=== PATIENT | female | born 1990 | race Two or more races ===

== ENCOUNTER 2023-07-08 12:56 | Outpatient (REF) | payer MEDICAID, SELFPAY ==
[2023-07-08 16:14] LABS: MANUAL DIFF FLAG NO
[2023-07-08 16:20] LABS: Basophils Absolute Auto 0.1 X10*3/uL (0.0-0.2); Eosinophils Absolute Auto 0.4 X10*3/uL (0.0-0.4); Eosinophils Percent Auto 4.9 % (0-4); Hematocrit 42.6 % (37.0-47.0); Hemoglobin 13.6 g/dl (12.0-16.0); Imm Gran Abs Auto 0.03 X10*3/uL (0.00-0.03); Imm Gran Pct Auto 0.4 % (0.0-0.4); Lymphocytes Absolute Auto 1.6 X10*3/uL (1.2-4.9); Lymphocytes Percent Auto 19.2 % (20-40); Mean Corpuscular HGB Conc 31.9 g/dl (31.0-35.0); Mean Corpuscular Hemoglobin 26.4 pg (27.0-33.0); Mean Corpuscular Volume 82.6 fL (80.0-98.0); Mean Platelet Volume 12.1 fL (9.4-12.3); Monocytes Absolute Auto 0.5 X10*3/uL (0.1-1.2); Monocytes Percent Auto 6.2 % (2-11); Neutrophils Absolute Auto 5.7 x10*3/uL (2.0-8.3); Neutrophils Percent Auto 68.3 % (45-73); Platelet Count 331 X10*3/uL (160-400); Red Blood Count 5.16 X10*6/uL (4.20-5.50); Red Cell Distribution Width 14.2 % (11.0-16.0); White Blood Count 8.4 X10*3/uL (4.8-10.8)
[2023-07-08 16:31] LABS: Estimated Average Glucose 108 mg/dL; Hemoglobin A1c % 5.4 % (<6.0)
[2023-07-08 16:37] LABS: Alanine Aminotransferase 24 U/L (0-31); Albumin Level 4.2 g/dL (3.5-5.0); Alkaline Phosphatase 77 U/L (39-117); Anion Gap 11 (12-20); Aspartate Amino Transferase 23 U/L (5-31); Bilirubin Direct 0.2 mg/dL (0.0-0.5); Bilirubin Total 0.3 mg/dL (0.0-1.0); Blood Urea Nitrogen 10 mg/dL (9-16); Calcium 9.9 mg/dL (8.4-10.2); Carbon Dioxide 28 mmol/L (22-29); Chloride 105 mmol/L (96-108); Cholesterol 181 mg/dL (<200); Estimated Glomerular Filt Rate > 60; Glucose Random 90 mg/dL (60-115); HDL Cholesterol 68 mg/dL (>40); LDL Cholesterol Calculated 94 mg/dL (<100); Potassium 4.3 mmol/L (3.3-5.1); Sodium 140 mmol/L (135-145); Total Protein 7.8 g/dL (6.5-8.0); Triglycerides 99 mg/dL (<150)
[2023-07-08 16:58] LABS: Free T4 (Free Thyroxine) 0.96 ng/dL (0.71-1.85); Thyroid Stimulating Hormone 1.06 uIU/mL (0.32-4.0); Vitamin D 25-OH Total 26.7 ng/mL (>30)
[2023-07-09 04:32] LABS: CT PCR NOT DETECTED (Not Detect.); NG PCR NOT DETECTED (Not Detect.)
[2023-07-09 08:52] LABS: HBS Num1 522.02 mIU/mL (0-7.99); HBsAGNum1 0.41 S/CO (0.00-0.99); HIV AB/AG Nonreactive (Nonreactive); HIV Num 1 0.06 S/CO (0.00-0.99); Hepatitis B Surface Antigen Negative (Negative); ~HepC Num1 0.07 S/CO (0.00-0.79); ~Hepatitis B Surface Antibody REACTIVE (Nonreactive); ~Hepatitis C Antibody Nonreactive (Nonreactive)
[2023-07-10 08:04] LABS: Syphilis Screen Nonreactive (Nonreactive)
== END 2023-07-08 12:57 | disposition home or self-care (01) ==
LOC: HO.HHCL 12:56
PROVIDERS: Visit Provider Family Medicine
DX: J45.20 Mild intermittent asthma, uncomplicated (principal); E55.9 Vitamin D deficiency, unspecified; L50.9 Urticaria, unspecified
CPT/HCPCS: 0353U; 80048; 80061; 80076; 82306; 83036; 84439; 84443; 85025; 86706; 86780; 86803; 87340; 87389

== ENCOUNTER 2023-07-10 11:55 | Outpatient (REF) | payer MEDICAID, SELFPAY ==
--- NOTE | ~2023-07-10 | XR_ITS ---
EXAMINATION: XR KNEE, BILATERAL CLINICAL INFORMATION: Pain COMPARISON: 07/01/2019 TECHNIQUE: Lateral, and axial and 2 AP views of the left knee. Lateral and 2 AP views of the right knee. FINDINGS: Left knee: Mild medial and lateral joint space narrowing with small medial marginal osteophytes. Joint effusion present. Right knee: Joint effusion. Small medial and lateral marginal osteophytes. Mild medial and lateral joint space narrowing. XR/XR knee RT 3V IMPRESSION: Mild degenerative changes in the bilateral knees. Bilateral joint effusions.
--- NOTE | ~2023-07-10 | XR_ITS ---
EXAMINATION: XR KNEE, BILATERAL CLINICAL INFORMATION: Pain COMPARISON: 07/01/2019 TECHNIQUE: Lateral, and axial and 2 AP views of the left knee. Lateral and 2 AP views of the right knee. FINDINGS: Left knee: Mild medial and lateral joint space narrowing with small medial marginal osteophytes. Joint effusion present. Right knee: Joint effusion. Small medial and lateral marginal osteophytes. Mild medial and lateral joint space narrowing. XR/XR knee LT 3V IMPRESSION: Mild degenerative changes in the bilateral knees. Bilateral joint effusions.
== END 2023-07-10 11:56 | disposition home or self-care (01) ==
LOC: HO.HHCX 11:55
PROVIDERS: Visit Provider Family Medicine
DX: M25.561 Pain in right knee (principal); M25.562 Pain in left knee; G89.29 Other chronic pain
CPT/HCPCS: 73562

== ENCOUNTER 2023-07-15 13:29 | Outpatient (REF) | payer MEDICAID, SELFPAY ==
--- NOTE | ~2023-07-15 | CT_ITS ---
EXAMINATION: CT SCAN OF THE TEMPORAL BONES CLINICAL INFORMATION: Right-sided tinnitus COMPARISON: None. TECHNIQUE: Multidetector helical imaging was performed in the axial plane with generation of oblique axial and coronal reformatted projections. This CT examination was performed using dose optimization techniques as appropriate, variously including the following: *Automated exposure control *Adjustment of mA and/or kV according to patient size (this includes techniques or standardized protocols for targeted exams where dose is matched to indication/reason for exam; i.e. extremities or head) *Use of iterative reconstruction technique DLP: 202 mGy-cm. FINDINGS: -- Left Temporal Bone -- The periauricular soft tissues are unremarkable. The external auditory canal is clear. The tympanic membrane is intact without thickening. The scutum is normal. The middle ear cleft is clear. There is resorptive change/fibrous replacement of the distal lenticular process at the incudostapedial joint, otherwise normal appearance of the ossicles. The round and oval windows are normal. There is normal mineralization of the otic capsule. The tegmen tympani and tegmen mastoideum are intact. The mastoid air cells are clear. The cochlea, vestibule, and semicircular canals are normal. The vestibular aqueduct is normal.Small superiorly projecting IAC exostosis off the roof of the porus acusticus. The bony internal auditory canal is otherwise normal. The facial nerve course is normal. -- Right Temporal Bone -- The periauricular soft tissues are unremarkable. The external auditory canal is clear. The tympanic membrane is intact without thickening. The scutum is normal. The middle ear cleft is clear. The ossicles are normal without erosive change. The round and oval windows are normal. There is normal mineralization of the otic capsule. The tegmen tympani and tegmen mastoideum are intact. The mastoid air cells are clear. The cochlea, vestibule, and semicircular canals are normal. The vestibular aqueduct is normal. Small superiorly projecting IAC exostosis off the roof of the porus acusticus. The bony internal auditory canal is otherwise normal. The facial nerve course is normal. -- Other Findings -- There is asymmetric thinning/dehiscence of the right sigmoid plate in contiguity with several right-sided mastoid air cells as seen on image 98, series 4, which may be seen in the setting of ipsilateral pulsatile tinnitus. The bilateral carotid canals are normal. Mild scattered paranasal sinus mucosal disease, including dependent debris/retention cysts in the bilateral sphenoid sinuses. Asymmetric subchondral cystic/erosive changes of the right mandibular condyle head which is asymmetrically small compared to the contralateral left side with chronic osseous remodeling. The orbits are unremarkable. The visualized intracranial structures are normal. CT/CT internal auditory canals BI IMPRESSION: 1. Asymmetric thinning/dehiscence of the right sigmoid plate in contiguity with several right-sided mastoid air cells which may be accounting for reported history of right-sided pulsatile tinnitus. 2. Resorptive change/fibrous replacement of the distal lenticular process at the incudostapedial joint, which can be correlated clinically for history of left-sided conductive hearing loss. 3. Small superiorly projecting IAC exostoses. 4. Subchondral cystic/erosive change of the right mandibular condyle head which is asymmetrically small compared to the contralateral left side with chronic osseous remodeling can be correlated clinically for signs of unilateral bruxism. Asymmetry would be atypical for underlying systemic/inflammatory arthropathy.
== END 2023-07-15 13:30 | disposition home or self-care (01) ==
LOC: HO.CT 13:29
PROVIDERS: PCP Family Medicine; Visit Provider Family Medicine
DX: H93.11 Tinnitus, right ear (principal)
CPT/HCPCS: 70480

== ENCOUNTER 2023-07-22 10:21 | Outpatient (AMB) | payer MEDICAID, SELFPAY ==
--- NOTE | 2023-07-22 10:25 | MHC.OFFVIS ---
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 Patient reports ongoing pain for many years with no previous treatment. She states that both of her knees are equal to pain. Pain is worse when using the stairs. She denies any locking or giving way. She does report an intermittent ?crunchy sensation?. She has taken Tylenol which gives her mild relief. Allergies cefotetan [CEFOTETAN] Allergy (Intermediate, Verified 07/22/23 10:29) HIVES AND FACIAL SWELLING Medication List - Last Reconciled 07/22/23 by Greg Turcios MD acetaminophen ER 650 mg PO Q8H PRN albuterol sulfate 90 mcg/actuation (Ventolin HFA) 2 puffs inhalation Q4-6H PRN baclofen 10 mg PO TID PRN diclofenac sodium 1% 2 grams topical DAILY PRN ibuprofen 800 mg PO TID PRN meloxicam 15 mg PO DAILY PRN norethindrone (contraceptive) (Incassia) 0.35 mg PO DAILY PFSH Social History (Updated 07/22/23 @ 10:31 by Razia Longoria) Alcohol intake: never Patient Tobacco Use Status: Never used Tobacco Current occupational status: employed 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 Physical Exam Vital Signs: BMI result Body Mass Index 54.9 Const Other: Well-nourished well-developed very friendly female awake alert and oriented x3 in no acute distress Extrem Other: Bilateral lower extremity examination shows good capillary refill, no skin lesions noted, normal sensation light touch Bilateral knee examination shows minimal effusions, minimal crepitus with range of motion, no tenderness along her medial or lateral joint lines, negative Lázaro's test, no instability Results Reviewed Results Reviewed: X-rays of the patient's bilateral knee show mild diffuse joint space narrowing, no acute bony abnormalities Assessment & Plan Assessment & Plan (1) Left knee pain: Code(s): M25.562 - Pain in left knee Plan: Ms. Espinoza presents with bilateral knee pains most likely due to early degenerative joint disease. I had a lengthy discussion with the patient regarding the treatment options. We will hold off on an injection at this time. I did give the patient a prescription for meloxicam which she will take as needed. Activity modifications were discussed at length with the patient. She will follow up on an as-needed basis should her symptoms not plateau at an unacceptable level over the next few months. Feel free to call me at any time should questions regarding her orthopedic management arise. Thank you very much for asking me to see this very friendly patient. I spent 22 minutes in reviewing the patient's records and imaging studies, seeing the patient and documenting in the medical record. (2) Right knee pain: Code(s): M25.561 - Pain in right knee Medications: New meloxicam 15 mg PO DAILY PRN 30 tabs 2RF pain Coding Level of Care Code New Pt Level 2 (41177) Diagnoses Left knee pain M25.562 Right knee pain M25.561
[2023-07-22 10:31] VITALS: BMI 54.9
== END 2023-07-22 10:45 | disposition home or self-care (01) ==
PROVIDERS: PCP Family Medicine; Visit Provider Orthopaedic Surgery
DX: M25.562 Pain in left knee (principal); M25.561 Pain in right knee
CPT/HCPCS: 99202

== ENCOUNTER → 2023-07-22 10:21 | Outpatient (BNVA) | payer MEDICAID, SELFPAY | PROVIDERS: PCP Family Medicine; Visit Provider Orthopaedic Surgery | DX: G89.29 Other chronic pain (principal); M25.562 Pain in left knee; M25.561 Pain in right knee | CPT/HCPCS: 99202 ==

== ENCOUNTER 2023-10-05 17:33 | Outpatient (REF) | payer MEDICAID, SELFPAY | END 2023-10-05 17:34 | disposition home or self-care (01) | LOC: HO.HHCLNP 17:33 | PROVIDERS: Visit Provider Emergency Medicine | DX: R39.9 Unspecified symptoms and signs involving the genitourinary system (principal); R00.2 Palpitations | CPT/HCPCS: 87086; 87088; 87186 ==

== ENCOUNTER 2023-10-07 11:17 | Outpatient (REF) | payer MEDICAID, SELFPAY ==
[2023-10-07 13:14] LABS: MANUAL DIFF FLAG NO
[2023-10-07 13:32] LABS: Basophils Absolute Auto 0.1 X10*3/uL (0.0-0.2); Basophils Percent Auto 0.7 % (0-2); Eosinophils Absolute Auto 0.2 X10*3/uL (0.0-0.4); Eosinophils Percent Auto 2.1 % (0-4); Hematocrit 41.8 % (37.0-47.0); Hemoglobin 13.5 g/dl (12.0-16.0); Imm Gran Abs Auto 0.04 X10*3/uL (0.00-0.03); Imm Gran Pct Auto 0.5 % (0.0-0.4); Lymphocytes Absolute Auto 1.7 X10*3/uL (1.2-4.9); Lymphocytes Percent Auto 20.9 % (20-40); Mean Corpuscular HGB Conc 32.3 g/dl (31.0-35.0); Mean Corpuscular Hemoglobin 26.8 pg (27.0-33.0); Mean Corpuscular Volume 83.1 fL (80.0-98.0); Mean Platelet Volume 11.7 fL (9.4-12.3); Monocytes Absolute Auto 0.5 X10*3/uL (0.1-1.2); Monocytes Percent Auto 6.5 % (2-11); Neutrophils Absolute Auto 5.6 x10*3/uL (2.0-8.3); Neutrophils Percent Auto 69.3 % (45-73); Platelet Count 318 X10*3/uL (160-400); Red Blood Count 5.03 X10*6/uL (4.20-5.50); Red Cell Distribution Width 14.3 % (11.0-16.0)
[2023-10-07 13:39] LABS: Estimated Average Glucose 111 mg/dL; Hemoglobin A1c % 5.5 % (<6.0)
[2023-10-07 14:07] LABS: Free T4 (Free Thyroxine) 0.97 ng/dL (0.71-1.85); Thyroid Stimulating Hormone 1.14 uIU/mL (0.32-4.0)
== END 2023-10-07 11:18 | disposition home or self-care (01) ==
LOC: HO.HHCL 11:17
PROVIDERS: Visit Provider Family Medicine
DX: R00.2 Palpitations (principal)
CPT/HCPCS: 36415; 83036; 84439; 84443; 85025

== ENCOUNTER → 2023-10-30 12:26 | Outpatient (REF) | payer MEDICAID, SELFPAY ==
--- NOTE | 2023-10-30 12:32 | CA_ITS ---
Transthoracic Echocardiogram Patient (Last, First, Middle): Rosendo Espinoza, Gender: Female Date of : 1990 Age: 32 Procedure Date: 10/30/2023 Procedure Type: Transthoracic Echocardiogram Location: OP Height: 162.56 cm Weight: 145.15 kg BSA: 2.39 m2 Heart Rate: 54 bpm BP: 110 / 65 mmHg Room Worker: JORDEN Segal MD: Rhiannon De Los Santos DO Coin Machine Servicer Repairer: Ross Rios MD Symptoms: R00.2 PALPITATIONS Study Quality: Fair ECG Rhythm: Bradycardia Conclusions: - Essentially normal study Findings Left Ventricle Normal left ventricular size, thickness, and systolic function. The visually estimated ejection fraction is between 55-60%. Spectral Doppler is indicative of a normal filling pattern. Peak GLS is -17.9%, borderline normal. Right Ventricle Normal right ventricular cavity size and systolic function. Atria Both atria are normal in size. Interatrial shunt cannot be excluded. Aortic Valve The aortic valve structure and function is likely normal. There is no aortic valve stenosis. There is no aortic valve regurgitation. Mitral Valve Normal mitral valve structure and function. There is trace mitral valve regurgitation. There is no mitral valve stenosis. Pulmonic Valve The pulmonic valve is likely normal. Tricuspid Valve Normal tricuspid valve structure. There is trace tricuspid valve regurgitation. The right ventricular systolic pressure is normal. The right ventricular systolic pressure is 20 mmHg. Normal right atrial pressure. There is no evidence of pulmonary hypertension. Great Vessels All visible segments of the aorta are normal in size. The pulmonary artery was not well visualized. There is no dilatation of the ascending aorta measuring 3.40 cm. Venous The inferior vena cava is normal in size and collapses greater than 50% with inspiration. Pericardium/Pleural There is no evidence of pericardial effusion. Prior Study Comparison No prior study available for comparison. Measurements 2D Linear Measurements IVSd: 0.76 0.6-0.9/0.6-1.0 cm LVIDd: 5.38 3.9-5.3/4.2-5.9 cm LVIDd Index: 2.25 2.4-3.2/2.2-3.1 cm/m2 LVIDs: 3.50 2.0-3.6 cm LVPWd: 0.87 0.7-1.1 cm LA Diam: 3.80 2.7-3.8/3.0-4.0 cm LAIDs Index: 1.59 1.5-2.3 cm/m2 LV Mass: 196.91 67-162/88-224 g LV Mass Index: 82.39 43-95/49-115 g/m2 LVOT Diam: 2.10 3.0+(-)1.3 cm 2D Systolic Function EF 4C: 57.60 >55% EF 2C: 55.00 >55% EF BiP: 55.00 >55% Mitral Valve MV Pk E: 1.09 MV PK A: 0.67 MV Decel Time: 208.00 E/A: 1.60 E'Lateral: 10.70 E'Medial: 9.68 E/E' Med: 11.30 E/E' Lat: 10.20 PHT: 61.00 MVA PHT: 3.61 Decel [place]: 5.26 Aortic Valve AoV Pk Dalton: 1.65 AoV Mn Dalton: 1.16 AoV VTI: 0.37 AoV Pk Grad: 11.00 Aov Mn Grad: 6.00 ANU Cont.VTI: 2.75 LVOT LVOT Pk Dalton: 1.27 LVOT Mn Dalton: 0.92 LVOT VTI: 0.30 LVOT Pk Grad: 6.00 LVOT Mn Grad: 4.00 LVOT Diam: 2.10 LVOT Area: 3.46 Diastolic Function MV Pk E: 1.09 MV Pk A: 0.67 E/A: 1.60 E'Medial: 9.68 E/E' Med: 11.30 E' Laterial: 10.70 E/E' Lat: 10.20 Right Ventricle TAPSE (mm): 25.30 TVS' Dalton: 12.40 Tricuspid Valve TR Pk Dalton: 2.09 TR Pk Grad: 17.00 RA Press: 3.00 RVSP: 20.00 Great Vessels Aorta Sinus of Valsalva: 2.90 2.0-3.5 cm Ao Asc: 3.40 2.1-3.4 cm Pulmonary Valve PV Pk Dalton: 0.99 Peak PV Grad: 4.00 Updated in Other Vendor System with Status of Final Ross Rios MD electronically signed on 10/30/2023 3:59:57 PM with status of Final
--- NOTE | 2023-10-30 12:34 | HM_ITS ---
* Total monitoring time 2 days. * Underlying rhythm is sinus with an average rate of 79/Min. Range 46 to 148/Min. * Very rare supraventricular ectopy. * No significant pauses or AV blocks. * No patient markers or diary events. MTDD
== END ==
LOC: HO.CARD 12:26
PROVIDERS: PCP Family Medicine; Visit Provider Family Medicine
DX: R00.2 Palpitations (principal)
CPT/HCPCS: 93225; 93306; 93356

== ENCOUNTER → 2023-10-30 12:32 | Outpatient (BNV) | payer MEDICAID, SELFPAY | PROVIDERS: PCP Family Medicine; Visit Provider Internal Medicine Cardiovascular Disease | DX: I47.10 Supraventricular tachycardia, unspecified (principal) | CPT/HCPCS: 93227; 93306 ==

== ENCOUNTER 2023-11-25 18:35 | Outpatient (REF) | payer MEDICAID, SELFPAY | END 2023-11-25 18:36 | disposition home or self-care (01) | LOC: HO.HHCLNP 18:35 | PROVIDERS: Visit Provider Emergency Medicine | DX: R30.9 Painful micturition, unspecified (principal) | CPT/HCPCS: 87086; 87088; 87186 ==

== ENCOUNTER 2024-01-04 13:20 | Outpatient (AMB) | payer MEDICAID, SELFPAY ==
[2024-01-04 13:32] VITALS: BP 128/72; PULSE 83; BMI 55.6
--- NOTE | 2024-01-04 13:32 | MHC.OFFVIS ---
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 Intake Note: New patient c/o palpitations mostly after lunch last about 2 hour hr between 80-105 Unit Operator Required: No Allergies cefotetan [CEFOTETAN] Allergy (Intermediate, Verified 07/22/23 10:29) HIVES AND FACIAL SWELLING Medication List - Last Reconciled 01/04/24 by Ross Rios MD acetaminophen ER 650 mg PO Q8H PRN albuterol sulfate 90 mcg/actuation (Ventolin HFA) 2 puffs inhalation Q4-6H PRN baclofen 10 mg PO TID PRN diclofenac sodium 1% 2 grams topical DAILY PRN ibuprofen 800 mg PO TID PRN meloxicam 15 mg PO DAILY PRN norethindrone (contraceptive) (Incassia) 0.35 mg PO DAILY HPI HPI Comments History of Present Illness Details Thank you for referring Rosendo in cardiology consultation today for symptoms of palpitations. 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 Patient has been having symptoms of palpitation with the last many months, she is notice that the symptoms happen mostly after she has lunch. This does not matter as to what kind of lunch she has. She usually feels her heart rate going up to about 110 beats per minute, she would get some lightheadedness and not feeling well. She would then just wait it out and the symptoms would subside in his about hour or so. She has never had these symptoms at other times. She underwent echocardiogram and Holter monitor in October which were both within acceptable limits. She says she does not drink much water on a daily basis. She had a gastric sleeve surgery 7-8 years ago at [facility] and had lost lot of weight but has slowly started to gain it back. She is seen the bariatric surgery again have they recommended gastric bypass surgery but she says she is very busy in life with her job and 2 young kids. She has not been exercising much or paying attention to her lifestyle modification. She denies any worsening exertional chest pain or shortness of breath. No lightheadedness, syncope. 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 Review of Systems Const Denies chills, Denies daytime sleepiness, Denies fatigue, Denies fever(s), Denies frequent falls, Denies poor appetite, Denies snoring, Denies stops breathing during sleep, Denies weakness, Denies weight gain and Denies weight loss Eyes Denies loss of vision ENT Denies dizziness and Denies hearing loss Card Denies chest pain, Denies claudication, Denies leg edema, Denies lightheadedness, Denies palpitations, Denies dyspnea, Denies dyspnea on exertion and Denies orthopnea Resp Denies cough, Denies excessive phlegm production, Denies dyspnea, Denies dyspnea on exertion, Denies snoring and Denies wheezing GI Denies abdominal pain, Denies hematochezia, Denies change in bowel habits, Denies nausea and Denies vomiting Denies urinary frequency and Denies dysuria Musc Denies arthralgias, Denies muscle weakness, Denies numbness and Denies other (frequent falls) Skin/Breast Denies nail changes and Denies rash Neuro Denies Abnormal speech present, Denies dizziness, Denies frequent falls, Denies loss of vision, Denies memory loss, Denies numbness and Denies weakness Psych Denies depression and Denies memory loss Endo Denies fatigue and Denies palpitations Sagar/Lymph Reports easy bruising and Reports other (anemia) Aller/Immun Denies wheezing Physical Exam Vital Signs: Last Vital Signs Pulse 83 01/04/24 13:32 BP 128/72 01/04/24 13:32 BMI result Body Mass Index 55.6 Const General: cooperative, comfortable, no acute distress, alert and awake Nutritional Appearance: obese morbidly obese Orientation/consciousness: patient oriented x3 Limitations: no limitations HEENT Head: Yes normocephalic and Yes atraumatic Neck Neck: Yes trachea midline, Yes supple and Yes no JVD Resp Effort & Inspection: normal respiratory effort Auscultation: clear to auscultation bilaterally Cardio Jugular venous distension: no JVD Palpation: normal PMI Rate: regular rate Rhythm: regular rhythm Heart sounds: S1 normal heart sound present, S2 normal heart sound present, no click, no gallops, no murmurs and no rubs GI Auscultation: normal bowel sounds Skin General skin exam: no rashes or lesions noted Neuro General: patient oriented x3 and no focal motor deficits Speech: No Abnormal speech present Extrem General: Yes no clubbing, cyanosis or edema Office Procedures EKG Details: EKG shows normal sinus rhythm with normal EKG [id number], Complete Assessment & Plan Assessment & Plan (1) Palpitations: Code(s): R00.2 - Palpitations Plan: Patient's symptoms of palpitations mostly happening postprandially during lunchtime and not had other times. She has no associated episodes of syncope but does get lightheaded and does not feel well. This syndrome are suggestive of dysautonomia and findings similar to postural orthostatic tachycardia syndrome especially post lunch where the blood flow is diverted to the GI tract. Most likely related to poor oral intake of water overall. I would suggest her to undergo head-up tilt-table test to evaluate for dysautonomia. This will be scheduled in near future. Meanwhile I have advised her to increase her fluid intake to up to 2 L a day also liberalize her salt intake. Advised to monitor blood pressure during these episodes. Her echocardiogram and Holter monitor were benign. Likelihood of malignant arrhythmias is low and this was discussed with her. In the long run I have strongly encouraged to continue to participate in aggressive lifestyle modification with aggressive weight loss program and consider bariatric service consultation. Will follow up in the clinic in couple of months. Thank you for allowing me to partake in the care Coding Level of Care Code New Pt Level 3 (04675) Diagnoses Palpitations R00.2 CPT Codes EKG - CPT: 80335-[id number], Complete ([id number])
== END 2024-01-04 14:04 | disposition home or self-care (01) ==
PROVIDERS: PCP Family Medicine; Visit Provider Internal Medicine Cardiovascular Disease
DX: R00.2 Palpitations (principal)
CPT/HCPCS: 93010; 99213

== ENCOUNTER → 2024-01-04 13:20 | Outpatient (BNVA) | payer MEDICAID, SELFPAY | PROVIDERS: PCP Family Medicine; Visit Provider Internal Medicine Cardiovascular Disease | DX: R00.2 Palpitations (principal) | CPT/HCPCS: 93005; 99212 ==

== ENCOUNTER 2024-03-30 13:50 | Outpatient (AMB) | payer MEDICAID, SELFPAY ==
[2024-03-30 13:57] VITALS: BP 128/68; PULSE 78; BMI 55.6
--- NOTE | 2024-03-30 13:57 | MHC.OFFVIS ---
Vital Signs 03/30/24 13:57 Height 5 ft 4 in Weight 324 lb 1.272 oz BMI 55.6 BP 128/68 Blood Pressure Location Lt brachial Position Sitting Pulse 78 Pulse Source Pulse Oximeter Intake Visit Reasons: fu Allergies cefotetan [CEFOTETAN] Allergy (Intermediate, Verified 07/22/23 10:29) HIVES AND FACIAL SWELLING Medication List - Last Reconciled 03/30/24 by Lauryn Florian NP acetaminophen ER 650 mg PO Q8H PRN albuterol sulfate 90 mcg/actuation (Ventolin HFA) 2 puffs inhalation Q4-6H PRN baclofen 10 mg PO TID PRN diclofenac sodium 1% 2 grams topical DAILY PRN ibuprofen 800 mg PO TID PRN meloxicam 15 mg PO DAILY PRN HPI Comments Details: 33-year-old female presents today for a follow-up. She has been having palpitations after lunch. She reports her lunch is the biggest meal of the day. These palpitations have decreased since increasing her water intake. She has a medical history of asthma, arthritis, and gastric sleeve surgery, She was not able to get her tilt table done due to a weight limit at [facility]. 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 Review of Systems Const Denies weakness ENT Denies dizziness Card Denies chest pain, Denies chest pain with activity, Denies syncope, Denies rapid heart rate, Denies pedal edema, Denies edema, Denies leg edema, Denies lightheadedness, Denies palpitations, Denies dyspnea, Denies dyspnea on exertion and Denies orthopnea Resp Denies cough, Denies dyspnea and Denies dyspnea on exertion GI Denies hematochezia and Denies change in stool character Musc Denies abnormal gait, Denies muscle cramps, Denies muscle weakness, Denies numbness, Denies radiating pain into limb and Denies tingling Neuro Denies abnormal gait, Denies dizziness, Denies syncope, Denies numbness, Denies tingling and Denies weakness Endo Denies palpitations Physical Exam Vital Signs: Last Vital Signs Pulse 78 03/30/24 13:57 BP 128/68 03/30/24 13:57 BMI result Body Mass Index 55.6 Const General: healthy appearing and no acute distress Orientation/consciousness: patient oriented x3 HEENT Head: Yes normal to inspection Eyes General: appearance normal, both eyes and all related structures Neck Neck: Yes normal visual inspection Chest Chest palpation & inspection: normal inspection of the chest Resp Effort & Inspection: normal respiratory effort Auscultation: clear to auscultation bilaterally Cardio Jugular venous distension: no JVD Palpation: normal PMI Rate: regular rate Rhythm: regular rhythm Heart sounds: S1 normal heart sound present, S2 normal heart sound present, no click, no gallops, no murmurs and no rubs GI Inspection: Yes normal to inspection Palpation (GI): Soft to palpation Skin General skin exam: no rashes or lesions noted Neuro General: patient oriented x3 Extrem General: Yes normal to inspection Psych Appearance: grossly normal Assessment & Plan Assessment & Plan (1) Palpitations: Code(s): R00.2 - Palpitations Category: Medical Plan: Postprandial palpitations mostly after lunchtime. She states this is her biggest meal of the day. She has no associated episodes of syncope but does get lightheaded. Discussed how blood flow is diverted to the GI tract. She was not able to complete Tilt Table due to weight limits, will check with local hospitals to see if it can be done. Decreased symptoms with increasing her water intake. Advised to increase her fluid intake to up to 2 L a day and to liberalize her salt intake. Advised to monitor blood pressure and heart rate during these episodes. Log them along side with her symptoms and what she was doing at that time. Her echocardiogram and Holter monitor were benign. She stated that when she had her first holter that is was on her days off. She feels these mostly when she is working. Will reorder 48 hour holter and she will schedule it when she is going to be at work. Continue with weight loss. Orders: Orders ECG holter monitor 48 hour Today R00.2 - Palpitations Coding Level of Care Code Est Pt Level 3 (53657) Diagnoses Palpitations R00.2
== END 2024-03-30 14:30 | disposition home or self-care (01) ==
PROVIDERS: PCP Family Medicine; Visit Provider Nurse Practitioner
DX: R00.2 Palpitations (principal)
CPT/HCPCS: 99213

== ENCOUNTER → 2024-03-30 13:50 | Outpatient (BNVA) | payer MEDICAID, SELFPAY | PROVIDERS: PCP Family Medicine; Visit Provider Nurse Practitioner | DX: R00.2 Palpitations (principal) | CPT/HCPCS: 99212 ==

== ENCOUNTER 2024-04-20 12:10 | Outpatient (REF) | payer MEDICAID, SELFPAY ==
[2024-04-20 13:25] LABS: Basophils Percent Auto 0.5 % (0-2); Eosinophils Absolute Auto 0.1 X10*3/uL (0.0-0.4); Eosinophils Percent Auto 1.5 % (0-4); Hematocrit 38.3 % (37.0-47.0); Hemoglobin 12.5 g/dl (12.0-16.0); Imm Gran Abs Auto 0.04 X10*3/uL (0.00-0.03); Imm Gran Pct Auto 0.5 % (0.0-0.4); Lymphocytes Absolute Auto 1.3 X10*3/uL (1.2-4.9); MANUAL DIFF FLAG NO; Mean Corpuscular HGB Conc 32.6 g/dl (31.0-35.0); Mean Corpuscular Hemoglobin 27.5 pg (27.0-33.0); Mean Corpuscular Volume 84.2 fL (80.0-98.0); Mean Platelet Volume 11.7 fL (9.4-12.3); Monocytes Absolute Auto 0.4 X10*3/uL (0.1-1.2); Monocytes Percent Auto 4.9 % (2-11); Neutrophils Absolute Auto 5.6 x10*3/uL (2.0-8.3); Neutrophils Percent Auto 75.6 % (45-73); Platelet Count 242 X10*3/uL (160-400); Red Blood Count 4.55 X10*6/uL (4.20-5.50); Red Cell Distribution Width 15.5 % (11.0-16.0); White Blood Count 7.4 X10*3/uL (4.8-10.8)
[2024-04-20 13:52] LABS: Estimated Average Glucose 105 mg/dL; Hemoglobin A1c % 5.3 % (<6.0)
[2024-04-20 13:57] LABS: Alanine Aminotransferase 24 U/L (0-31); Alkaline Phosphatase 67 U/L (39-117); Anion Gap 10 (12-20); Aspartate Amino Transferase 18 U/L (5-31); Beta-Hydroxybutyrate 0.15 mmol/L (0.02-0.27); Bilirubin Direct 0.1 mg/dL (0.0-0.5); Bilirubin Total 0.4 mg/dL (0.0-1.0); Blood Urea Nitrogen 9 mg/dL (9-16); Calcium 9.7 mg/dL (8.4-10.2); Carbon Dioxide 26 mmol/L (22-29); Chloride 104 mmol/L (96-108); Cholesterol 179 mg/dL (<200); Estimated Glomerular Filt Rate > 60; Glucose Random 90 mg/dL (60-115); HDL Cholesterol 88 mg/dL (>40); LDL Cholesterol Calculated 78 mg/dL (<100); Sodium 136 mmol/L (135-145); Total Protein 7.4 g/dL (6.5-8.0); Triglycerides 69 mg/dL (<150)
[2024-04-20 14:04] LABS: HBc Num1 0.13 S/CO (0.00-0.79); HBsAGNum1 0.25 S/CO (0.00-0.99); HIV AB/AG Nonreactive (Nonreactive); HIV Num 1 0.05 S/CO (0.00-0.99); Hepatitis B Core Antibody Nonreactive (Nonreactive); Hepatitis B Surface Antigen Negative (Negative); ~Hepatitis B Surface Antibody REACTIVE (Nonreactive)
[2024-04-20 14:05] LABS: Hepatitis A Antibody IgG Nonreactive (Nonreactive); Hepatitis A Antibody IgM 0.12 Index (0-0.79); ~Hepatitis A Antibody IgG 0.57 S/CO (0.00-0.99); ~Hepatitis A Antibody IgM Nonreactive (Nonreactive)
[2024-04-20 14:13] LABS: Free T4 (Free Thyroxine) 0.92 ng/dL (0.71-1.85); Thyroid Stimulating Hormone 1.07 uIU/mL (0.32-4.0); Vitamin D 25-OH Total 19.7 ng/mL (>30)
[2024-04-20 14:42] LABS: HCG Quantitative 22111 mIU/mL; Insulin 9 uU/mL (2-29)
[2024-04-20 15:51] LABS: CT PCR NOT DETECTED (Not Detect.); NG PCR NOT DETECTED (Not Detect.)
[2024-04-21 09:04] LABS: C Peptide 1.91 ng/mL (0.80-3.85)
[2024-04-22 08:44] LABS: RPR Rapid Plasma Reagin NON-REACTIVE (NON-REACTIVE)
[2024-04-22 16:04] LABS: HCV RNA PCR Qn <1.18 NOT DETECTED Log IU/mL (NOT DETECTED); HCV RNA PCR Qn <15 NOT DETECTED IU/mL (NOT DETECTED)
== END 2024-04-20 12:11 | disposition home or self-care (01) ==
LOC: HO.HHCL 12:10
PROVIDERS: Visit Provider Family Medicine
DX: Z00.00 Encounter for general adult medical examination without abnormal findings (principal); J45.20 Mild intermittent asthma, uncomplicated; R00.2 Palpitations; N92.6 Irregular menstruation, unspecified; E16.2 Hypoglycemia, unspecified
CPT/HCPCS: 80048; 80061; 80076; 82010; 82306; 83036; 83525; 84439; 84443; 84681; 84702; 85025; 86592; 86704; 86706; 86708; 86709; 87340; 87389; 87491; 87522; 87591

== ENCOUNTER → 2024-05-02 07:00 | Outpatient (REF) | payer MEDICAID, SELFPAY ==
--- NOTE | 2024-05-02 07:02 | HM_ITS ---
* Total monitoring time 2 days. * Underlying rhythm is sinus with an average rate of 82/Min. * Very rare ventricular ectopy. * No significant pauses or high-grade AV blocks. * No patient markers or diary events. MTDD
== END ==
LOC: HO.CARD 07:00
PROVIDERS: PCP Family Medicine; Visit Provider Nurse Practitioner
DX: R00.2 Palpitations (principal)
CPT/HCPCS: 93225

== ENCOUNTER → 2024-05-02 07:02 | Outpatient (BNV) | payer MEDICAID, SELFPAY | PROVIDERS: PCP Family Medicine; Visit Provider Internal Medicine | DX: I49.3 Ventricular premature depolarization (principal) | CPT/HCPCS: 93227 ==

== ENCOUNTER 2025-01-20 12:03 | Outpatient (REF) | payer MEDICAID, SELFPAY ==
--- NOTE | ~2025-01-20 | XR_ITS ---
EXAMINATION: XR FOOT 3 OR MORE VIEWS RIGHT HISTORY: PAIN COMPARISON: There are no prior studies available for comparison. FINDINGS: Three views of the right foot are submitted. Osseous mineralization is normal. There is no fracture or dislocation. The joint spaces are preserved. There is a small plantar calcaneal spur. The soft tissues are unremarkable. XR/XR foot RT min 3V IMPRESSION: Small plantar calcaneal spur. Otherwise unremarkable examination of the right foot. Electronically signed by: Osmany Tuttle MD 01/20/2025 01:38 PM EDT
[2025-01-20 13:26] LABS: MANUAL DIFF FLAG NO
[2025-01-20 13:35] LABS: Basophils Absolute Auto 0.1 X10*3/uL (0.0-0.2); Basophils Percent Auto 0.8 % (0-2); Eosinophils Absolute Auto 0.3 X10*3/uL (0.0-0.4); Eosinophils Percent Auto 3.6 % (0-4); Hematocrit 38.9 % (37.0-47.0); Hemoglobin 12.1 g/dl (12.0-16.0); Imm Gran Abs Auto 0.06 X10*3/uL (0.00-0.03); Imm Gran Pct Auto 0.7 % (0.0-0.4); Lymphocytes Absolute Auto 1.6 X10*3/uL (1.2-4.9); Lymphocytes Percent Auto 18.4 % (20-40); Mean Corpuscular HGB Conc 31.1 g/dl (31.0-35.0); Mean Corpuscular Hemoglobin 25.7 pg (27.0-33.0); Mean Corpuscular Volume 82.6 fL (80.0-98.0); Mean Platelet Volume 11.7 fL (9.4-12.3); Monocytes Absolute Auto 0.5 X10*3/uL (0.1-1.2); Monocytes Percent Auto 5.3 % (2-11); Neutrophils Absolute Auto 6.1 x10*3/uL (2.0-8.3); Neutrophils Percent Auto 71.2 % (45-73); Platelet Count 328 X10*3/uL (160-400); Red Blood Count 4.71 X10*6/uL (4.20-5.50); Red Cell Distribution Width 15.5 % (11.0-16.0); White Blood Count 8.5 X10*3/uL (4.8-10.8)
--- OUTSIDE RECORDS SUMMARY | 2025-01-20 14:05 | XMS_ITS | Clinical Summary ---
Author Organization [employer] Address [address] [facility] [address] [place] [address] Care Team Providers Care Soaker Meat Name Role Phone Rhiannon De Los Santos DO Primary Care Provider Allergies Active Allergy Reactions Criticality Noted Date Comments Cefuroxime 01/20/2025 Other Reaction(s): facial, lip, and throat swelling Cephalosporins Angioedema 03/28/2015 Medications Diclofenac Sodium 1 % gel APPLY 2 G TOPICALLY IF NEEDED IN THE MORNING, AT NOON, IN THE EVENING, AND AT BEDTIME (PAIN). 100 g 2 3 Active meloxicam (Mobic) 15 MG tablet Take 15 mg by mouth if needed each day. 3 Active Blood Pressure kit 1 each 1 (one) time per week. 1 kit 3 Active multivitamin () 27-0.8 MG tablet Take 1 tablet by mouth Once per day. 90 tablet 3 4 04/13/20 25 Active triamcinolone (Kenalog) 0.1 % creamIndications :Eczema, unspecified type APPLY TO AFFECTED AREA TWICE A DAY 30 g 3 4 Active albuterol (Ventolin HFA) 108 (90 Base) MCG/ACT inhaler TAKE 2 PUFFS BY MOUTH EVERY 4 TO 6 HOURS NEEDED 18 g 1 4 Active Active Problems Problem Noted Date Diagnosed Date BMI 50.0-59.9, adult 07/08/2023 Chronic low back pain 09/28/2015 Mild intermittent asthma 09/28/2015 Urticaria 09/28/2015 Vitamin D deficiency 09/28/2015 Resolved Problems Problem Noted Date Diagnosed Date Resolved Date Elevated BP without diagnosis of hypertension 10/06/20 23 10/07/2023 Acute cystitis without hematuria 10/06/2023 10/07/2023 Heart palpitations 10/06/2023 3 Encounters Date Type Department Care Team Description 01/20/2025 10:30 AM EDT Office Visit [facility] [place] [address] Rhiannon De Los Santos DO Routine history and physical examination of adult (Primary Dx); Mild intermittent asthma without complication; Heart palpitations; Hypoglycemia; Pain of right heel; BMI 50.0-59.9, adult ([facility]) 01/20/2025 Travel 01/17/2025 Patient Outreach [facility] [place] [address] Rhiannon De Los Santos DO Care Coordination ([facility]/JANES Stout-Follow up call) 01/13/2025 Travel 01/12/2025 Patient Outreach [facility] [address] [address] Rhiannon De Los Santos DO Pre-visit Planning (SDOH screening completed on 12/04/2024) 01/10/2025 Telephone [facility] [place] [address] Rhiannon De Los Santos DO Care Management (C3CM follow up call) 01/06/2025 Telephone [facility] [place] [address] Rhiannon De Los Santos DO 01/03/2025 Patient Outreach [facility] [place] [address] Rhiannon De Los Santos DO Care Coordination ([facility]/JANES Stout-Follow up call) 12/30/2024 Population Health Risk Score [facility] Department [address] [place] [phone] Provider, Population Health Generic 12/23/2024 Telephone [facility] [place] [address] Rhiannon De Los Santos DO Care Management (C3 initial assessment/enrollme nt) 12/22/2024 Patient Outreach [address] [address] Rhiannon De Los Santos DO Care Coordination ([facility]/JANES Stout-[place] Appt Reminder) 12/16/2024 Patient Outreach [address] [address] Rhiannon De Los Santos DO Transition Of Care (Tcm) (HDF- Labor ) 12/14/2024 Patient Outreach [address] [address] Rhiannon De Los Santos DO Care Coordination ([facility]/JANES Stout- ADT outreach-Agrees to participate) 12/13/[address] [address] Rhiannon De Los Santos DO Care Management (C3 chart review) 12/06/[address] [address] Rhiannon De Los Santos DO Recall Appt. 12/06/2024 Travel 12/03/2024 Orders Only [address] [address] Provider, MD Joseph from Last 3 Months Immunizations Name Administration Dates Next Due DTaP 01/18/1996, 2,10/19/1991,07/19,01/17/1991 HPV, Quadrivalent 01/30/2009,09/08/2007,07/09/20 07 Hep B, Adolescent or Pediatric 12/29/1997,1995,01/31/1996 Hep B, adult 01/09/2021 Hib (HbO) 11/19/1993, 2,07/19/1991,01/17 IPV 01/18/1996, 2,07/19/1991,01/17 Influenza Whole 07/01/2019 Influenza injectable quadriv alent IIV4 with preservative 07/01/2019 Influenza injectable quadriv alent preservative free 08/28/2021,07/16/2020,09/04/2016,09/28 Influenza, IIV3, injectable 09/26/2010 MMR 05/19/1996,11/19/1993 Meningococcal MCV4P ACYW-135 07/09/2007 Pfizer Covid-19 Vaccine 12+ 08/21/2021 Pfizer Covid-19 Vaccine 12+ michelle-sucrose (Suarez Cap) 08/21/2021 Pneumococcal Polysaccharide PPSV23 03/24/2012 Tdap 09/16/2024,,01/30/2020,02/26,07/09/2007 Family History Medical History Relation Name Comments Diabetes Brother 1 Diabetes Brother 2 Diabetes Father Diabetes Mother Hyperlipidemia Mother Hypertension Mother Diabetes Mother's Brother Diabetes Mother's Sister Lung cancer Mother's Sister Relation Name Status Comments Brother 1 Brother 2 Alive Father Mother Mother's Brother Mother's Sister Social History Tobacco Use Types Packs/Day Years Used Date Smoking Tobacco: Never Passive Smoke Exposure: Never Smokeless Tobacco: Never Tobacco Cessation:Counseling Given: Not Answered Alcohol Use Standard Drinks/Week Comments Never 0 (1 standard drink = 0.6 oz pur e alcohol) Depression Answer Date Recorded Patient Health Questionnaire-9 Score 0 01/20/2025 Patient Health Questionnaire-9 Score 0 01/20/2025 Last PHQ-9: Questionnaire Data Not on file 0 01/20/2025 Housing Stability Answer Date Recorded What is your housing situation today? I have yong cordova 12/14/[address] you li ve. Do you have problems with any of the following? None of the above 12/14/2024 Food Insecurity Answer Date Recorded Within the past 12 months, y ou worried that your food would run out before you got money to buy more: Never True 12/14/2024 Within the past 12 months,th e food you bought just didn't last and you didn't have enough money to get more: Never True Transportation Answer Date Recorded In the past 12 months, has l ack of transportation kept you from medical appts, meetings, work or from getting things needed for daily living? No 12/14/2024 Utilities Answer Date Recorded In the past 12 months, has t he electric, gas, oil or water company threatened to shut off services in your home? No 12/14/2024 Depression Answer Date Recorded Patient Health Questionnaire-2 Score 0 01/20/2025 Internet Access Answer Date Recorded Internet Access Q1 Yes 12/14/2024 Internet Access Q2 Not on file 12/14/2024 Comments No Sex and Gender Information Value Date Recorded Sex Assigned at Female 08/18/2022 10:16 AM EDT Legal Sex Female 10:16 AM EDT Gender Identity Female 08/18/2022 10:16 AM EDT Sexual Orientation Straight 08/18/2022 10 :16 AM EDT Last Filed Vital Signs Vital Sign Reading Time Taken Comments Blood Pressure 139/80 01/20/2025 10:42 AM EDT Pulse 64 01/20/2025 10:42 AM EDT Temperature 36.1 ??C (96.9 ??F) 01/20/2025 10:42 AM E DT Respiratory Rate 19 01/20/2025 10:42 AM EDT Oxygen Saturation 99% 01/20/2025 10:42 AM EDT Inhaled Oxygen Concentration - - Weight 146 kg (322 lb) 01/20/2025 10:42 AM EDT Height 162.6 cm (5' 4 ) 01/20/2025 10:42 AM EDT Body Mass Index 55.27 01/20/2025 10:42 AM EDT Plan of Treatment Health Maintenance Due Date Last Done Comments Family Planning (PISQ) 2005 Pneumococcal Vaccine: Pediatrics (0 to 5 Years) and At-Risk Patients (6 to 49) Years) (2 of 2 - PCV) 03/24/2013 03/24/2012 COVID-19 Vaccine ( season) 2024 08/21/2021, 08/21/2021 Influenza Vaccine (#1) 2024 , 07/16/2020, 07/01/2019, Additional history exists SDOH Screening 12/14/2025 12/14/2024 Alcohol/Substance Use Screening 01/20/2026 01/20/2025 Depression Screening 01/20/2026 01/20/2025, 01/21/20 Tobacco Screening 01/20/2026 01/20/2025 Cervical Cancer Screening 11/12/2027 HPV/Cotest 11/12/2027 Pap Smear 11/12/2027 11/12/2022 Lipid Panel 04/20/2029 04/20/2024, 06/20, 12/27/2021, Additional history exists DTaP/Tdap/Td Vaccines (11 - Td or Tdap) 09/16/2034 09/16/2024, 08/21/2021, 01/30/2020, Additional history exists Zoster Vaccines (1 of 2) 2040 RSV Patients and Patients Aged 60 years or older (1 - 1-dose 75+ series) 2065 HIB Vaccines Completed 11/19/1993, 10/1991, 07/19/1991, Additional history exists IPV Vaccines Completed 01/18/1996, 10/1991, 07/19/1991, Additional history exists Meningococcal Vaccine Completed 07/09/2007 HPV Vaccines Completed 01/30/2009, 08/20, 07/09/2007 Hepatitis B Vaccines Completed 01/09/2021, 12/29/1997, 06/03/1996, Additional history exists Hepatitis C Screening Completed 07/08/2023 , 12/27/2021, 01/02/2021 HIV Screening Completed 04/20/2024, 06/20, 12/27/2021, Additional history exists Hepatitis A Vaccines Aged Out No long er eligible based on patient's age to complete this topic RSV under 20 months Aged Out No longe r eligible based on patient's age to complete this topic Rotavirus Vaccines Aged Out No longer eligible based on patient's age to complete this topic Procedures Procedure Name Priority Date/Time Associated Diagnosis Comments XR FOOT 3+ VIEWS RIGHT Routine 01/20/2025 12:41 PM EDT Pain of right heel CBC WITH AUTO DIFFERENTIAL Routine 01/20/2025 12:12 PM EDT Routine history and physical examination of adult Mild intermittent asthma without complication Heart palpitations Hypoglycemia Pain of right heel BMI 50.0-59.9, adult ([facility]) HIV 1/2 ANTIGEN/ANTIBODY, FOURTH GENERATION W/RFL Routine 04/20/2024 12:24 PM EDT Mild intermittent asthma without complication Heart palpitations Missed period Hypoglycemia Healthcare maintenance BMI 50.0-59.9, adult ([facility]) LIPID PANEL, STANDARD Routine 04/20/2024 12:24 PM EDT Mild intermittent asthma without complication Heart palpitations Missed period Hypoglycemia Healthcare maintenance BMI 50.0-59.9, adult (CMS/HCC) HEPATITIS C AB W/REFL TO HCV RNA, QN, PCR Routine 07/08/2023 1:05 PM EDT HM PAP/HPV Routine 11/12/2022 6:10 PM EST from Last 3 Months or Most Recently Relevant to Health Maintenance Results * XR Foot 3+ Views Right (01/20/2025 12:41 PM EDT) Anatomical Region Laterality Modality Lower Extremities, Foot Right Radiogra phic Imaging 01/20/2025 12:4 1 PM EDT Narrative 01/20/2025 1:41 PM EDT ? [facility] ?[address] ?[place] [address] ?XRay Report ? Signed ? Patient: Rosendo Dunaway ?MR#: [id number] ?? 83 ? : 1990 ?Acct:[id number] ? Age/Sex: 34 / F ?ADM Date: 01/20/25 ? Loc: HO.HHCL ? Attending Dr: Rhiannon De Los Santos DO ? Ordering Physician: Rhiannon De Los Santos DO ?? Date of Service: 01/20/25 ?? Procedure(s): XR foot RT min 3V ?? Accession Number(s): [id number] ? cc: Rhiannon De Los Santos DO ? EXAMINATION: ??XR FOOT 3 OR MORE VIEWS RIGHT ? HISTORY: PAIN ? COMPARISON: There are no prior studies available for comparison. ? FINDINGS: ? Three views of the right foot are submitted. ??Osseous mineralization is ?? normal. ??There is no fracture or dislocation. ??The joint spaces are ?? preserved. There is a small plantar calcaneal spur. ??The soft tissues ?? are unremarkable. ? XR/XR foot RT min 3V ?? IMPRESSION: ? Small plantar calcaneal spur. Otherwise unremarkable examination of the ?? right foot. ? Electronically signed by: ??Osmany Tuttle MD ??01/20/2025 01:38 PM EDT ?? RP ? Dictated By: ?Osmany Tuttle MD ? Signed By: ?<Electronically signed by Osmany Tuttle MD in OV> ?01/20/25 1338 ? DD/ 1241 ? TD/TT: 01/20/25 1300 ? Computer Technical Specialist: ? Procedure Note [place], Image - 01/20/[address] [address] XRay Report Signed Patient: Tanesha Dunaway#: [id number] 83 : 1990Acct:[id number] Age/Sex: 34 / FADM Date: 01/20/25 Loc: HO.CL Attending Dr: Rhiannon De Los Santos DO Ordering Physician: Rhiannon De Los Santos DO Date of Service: 01/20/25 Procedure(s): XR foot RT min 3V Accession Number(s): [id number] cc: Rhiannon De Los Santos DO EXAMINATION: XR FOOT 3 OR MORE VIEWS RIGHT HISTORY: PAIN COMPARISON: There are no prior studies available for comparison. FINDINGS: Three views of the right foot are submitted. Osseous mineralization is normal. There is no fracture or dislocation. The joint spaces are preserved. There is a small plantar calcaneal spur. The soft tissues are unremarkable. XR/XR foot RT min 3V IMPRESSION: Small plantar calcaneal spur. Otherwise unremarkable examination of the right foot. Electronically signed by: Osmany Tuttle MD 01/20/2025 01:38 PM EDT Dictated By: Osmany Tuttle MD Signed By: <Electronically signed by Osmany Tuttle MD in OV> 01/20/25 1338 DD/ 1241 TD/TT: 01/20/25 1300 Computer Technical Specialist: Rhiannon De Los Santos DO IMG XR PROCEDURES Final Resu lt * (ABNORMAL) CBC auto differential (01/20/2025 12:12 PM EDT) White Blood Count 8.5 4.8 - 10.8 X10*3/uL [facility] Red Blood Count 4.71 4.20 - 5.50 X10*6/uL [facility] Hemoglobin 12.1 12.0 - 16.0 g/dl [facility] Hematocrit 38.9 37.0 - 47.0 % [facility] Mean Corpuscular Volume 82.6 80.0 - 98.0 fL [facility] Mean Corpuscular Hemoglobin 25.7(L) 27.0 - 33.0 pg [facility] Mean Corpuscular HGB Conc 31.1 31.0 - 35.0 g/dl [facility] Red Cell Distribution Width 15.5 11.0 - 16.0 % [facility] Platelet Count 328 160 - 400 X10*3/uL [facility] Mean Platelet Volume 11.7 9.4 - 12.3 fL [facility] Neutrophils Percent Auto 71.2 45 - 73 % [facility] Imm Gran Pct Auto 0.7(H) 0.0 - 0.4 % [facility] Lymphocytes Percent Auto 18.4(L) 20 - 40 % [facility] Monocytes Percent Auto 5.3 2 - 11 % [facility] Eosinophils Percent Auto 3.6 0 - 4 % [facility] Basophils Percent Auto 0.8 0 - 2 % [facility] NRBC Pct Auto 0.0 0.0 - 0.2 /100WBC [facility] Neutrophils Absolute Auto 6.1 2.0 - 8.3 x10*3/uL [facility] Imm Gran Abs Auto 0.06(H) 0.00 - 0.03 X10*3/uL [facility] Lymphocytes Absolute Auto 1.6 1.2 - 4.9 X10*3/uL [facility] Monocytes Absolute Auto 0.5 0.1 - 1.2 X10*3/uL [facility] Eosinophils Absolute Auto 0.3 0.0 - 0.4 X10*3/uL [facility] Basophils Absolute Auto 0.1 0.0 - 0.2 X10*3/uL [facility] NRBC Abs Auto 0.000 0.0 - 0.012 X10*3/uL [facility] Blood Venous blood specimen / Unknown 01/20/2025 12:12 PM EDT 01/20/2025 1:21 PM EDT Rhiannon De Los Santos LAB BLOOD ORDERABLES Final R esult Performing Organization Address City/[facility]/ZIP Co de Phone Number [facility] [address] [place] [phone] * HIV-1/2 Antigen and Antibodies, Fourth Generation, with Reflexes (04/20/2024 12:24 PM EDT) HIV AB/AG Nonreactive Nonreactive [facility] Comment:HIV-1 p24 Ag and/or HIV-1/HIV-2 Ab not detected.A test result that is nonreactive does not exclude thepossibility of exposure to or infection with HIV-1 and/orHIV-2. Nonreactive results in this assay for individualswith prior exposure to HIV-1 and/or HIV-2 may be due toantigen and antibody levels that are below the limit ofdetection of this assay.The [employer] HIV Ag/Ab Combo assay result andsupplemental assay results should be interpreted inconjunction with the patient's clinical presentation,history and other laboratory results. If the results areinconsistent with clinical evidence, additional testing issuggested to confirm the result. Blood Venous blood specimen / Unknown 04/20/2024 12:24 PM EDT 04/20/2024 1:07 PM EDT Rhiannon De Los Santos DO LAB BLOOD ORDERABLES Final R esult Performing Organization Address [facility]/ZIP Co de Phone Number [facility] [address] [place] [phone] * Lipid Panel, Standard (04/20/2024 12:24 PM EDT) Triglycerides 69 <150 mg/dL [facility] Comment:Desirable Triglyceri de: less than 150 mg/dLBorderline High Triglyceride 150-199 mg/dLHigh Triglyceride: 200-499 mg/dLVery High Triglyceride: greater than or equal to 5OO mg/dL Cholesterol 179 <200 mg/dL [facility] Comment:Desirable Cholestero l: less than 200 mg/dLBorderline High Cholesterol: 200-239 mg/dLHigh Cholesterol: greater than 239 mg/dL LDL Cholesterol Calculated 78 <100 mg/dL [facility] Comment:Desirable LDL: less than 100 mg/dLNear Optimal/Above Optimal LDL: 110- 129 mg/dLBorderline High LDL: 130-159 mg/dLHigh LDL: 160-189 mg/dLVery High LDL: greater than or equal to 190 mg/dL HDL Cholesterol 88 >40 mg/dL [facility] Comment:Desirable HDL: great er than 40 mg/dL Note: This HDL assay may give artificially low results in patients with liver disease. Blood Venous blood specimen / Unknown 04/20/2024 12:24 PM EDT 04/20/2024 1:07 PM EDT us Rhiannon De Los Santos DO LAB BLOOD ORDERABLES Final R esult Performing Organization Address City/[facility]/ZIP Co de Phone Number [facility] [address] [place] [phone] * Hepatitis C Antibody with Reflex to HCV, RNA, Quantitative, Real-Time PCR (07/08/2023 1:05 PM EDT) Hepatitis C Antibody Nonreactive Nonreactive [facility] Comment:Antibodies to HCV no t detected; does not exclude early acuteHCV infection. 07/08/2023 1:05 PM EDT 07/08/2023 4:11 PM EDT Rhiannon De Los Santos DO LAB BLOOD ORDERABLES Final R esult Performing Organization Address [facility]/ZIP Co de Phone Number [facility] [address] [place] [phone] * HM PAP/HPV (11/12/2022 6:10 PM EST) us Historical Provider HEALTH MAINTENANCE Final Result from Last 3 Months or Most Recently Relevant to Health Maintenance Insurance [address] [place] [address] C3 Care Teams Soaker Meat Relationship Specialty Start Date End Date Rhiannon De Los Santos DO [address] [place] [phone] PCP - General Family Medicine 05/04/12 Laya Dyer Receptionist 12/23/24
--- OUTSIDE RECORDS SUMMARY | 2025-01-20 14:05 | XMS_ITS | Continuity of Care Document ---
Author Organization [facility] ter Address [address] [place] [address]- Care Team Providers Care Doughnut Glazier Name Role Phone Hollyrolanda Rhiannon BACH Primary Care Physician [phone] [id number] Date[facility]/08[facility] - 01/19/[address] [address]- Attending Physician: Homar Mendez MD Referring Physician: Yoko Torres Encounter Type: Preadmit IP Allergies, Adverse Reactions, Alerts Substance Criticality Severity Reaction Reaction Severity Status Ceftin Unable to assess criticality Persistent Severe facial, lip, and throat swelling Active Immunizations Given and Recorded Vaccine Date Status Refusal Reason tetanus/diphtheria/pertussis, acel(Tdap) 09/16/24 Given tetanus/diphtheria/pertussis, acel(Tdap) 08/21/21 Given tetanus/diphtheria/pertussis, acel(Tdap) 01/30/20 Given SARS-CoV-2 (COVID-19) mRNA BNT-162b2 vac 08/21/21 Given Influenza Virus Vaccine (oldterm) 07/01/19 Recorde d Problem List Condition Confirmation Course Effective Dates Status Health St atus Informant Asthma 1 Confirmed Active Genital HSV Confirmed Active GBS carrier Confirmed Active H/O Bariatric surgery Confirmed 2016 Active Low-lying placenta Confirmed Active Morbid obesity Confirmed Active Severe obesity Confirmed Active Vitamin D deficiency 2 Confirmed Active 1Pt reports at OBI visit that she has a h/o asthma since childhood though her asthma Dx is managed by PCP - it is well controlled at present. 2Pt reports at OBI visit that she is currently taking vitamin D supplements. Social History Social History Type Response Smoking Status Never (less than 100 in lifetime) entered on: 09/08/19 Sex Sex Representation Female (finding) Patient Care team information Care Team Personnel Name: Rhiannon De Los Santos DO Position: [facility] Outreach Member Role: PCP Address: [address] [place] [address]- Telecom: Name: Emelyn Richard Position: [facility] Outreach Member Role: Lifetime Consulting Physician Care Team Related Persons Name: DELROY BRIONES Name: NONE, PER PT Name: FRANCISCO JAVIER PACHECO Name: OMAR PACHECO Name: OMAR PACHECO Name: SHIELA PACHECO Insurance Providers Guarantor name: [employer] Health Plan Information #: 1 Payer: [employer] Member Number: [id number] Policy Number: NA Group Number: [employer] Plan Information #: 2 Payer: [employer] Member Number: [id number] Policy Number: NA Group Number: NA
--- OUTSIDE RECORDS SUMMARY | 2025-01-20 14:05 | XMS_ITS | Continuity of Care Document ---
Author Organization [facility] Address [address] [place] [address]- Care Team Providers Care Manufacturing Applications Engineer Name Role Phone Rhiannon De Los Santos DO Primary Care Physician [phone] Encounter [facility] Date(s): 12/02/24 - 01/15/[address] [address] Attending Physician: Not on Staff, Attending MD Encounter Type: Pre-OutPatient One Time Allergies, Adverse Reactions, Alerts Substance Criticality Severity [...] placenta Confirmed Active Morbid obesity Confirmed Active Vitamin D deficiency 2 [...] Name: Rhiannon De Los Santos DO Position: [facility] Outreach Member Role: PCP Address: [address] [place] [address] Telecom: Name: Emelyn Richard Position: [facility] Outreach Member Role: Lifetime Consulting Physician Care Team Related Persons Name: DELROY BRIONES Name: NONE, PER PT Name: FRANCISCO JAVIER PACHECO Name: OMAR PACHECO Name: OMAR PACHECO Name: SHIELA PACHECO Insurance Providers Guarantor name: [employer] Health Plan Information #: 1 Payer: [employer] Member Number: [id number] Policy Number: NA Group Number: [employer] Plan Information #: 2 Payer: [employer] Member Number: [id number] Policy Number: [place] Group Number: NA
--- OUTSIDE RECORDS SUMMARY | 2025-01-20 14:05 | XMS_ITS | Encounter Summary ---
Author Organization [employer] Address [address] [facility] 7t [place] [address] Care Team Providers Care Muck Operator Name Role Phone Rhiannon De Los Santos DO Primary Care Provider + [phone] Encounter Details Date Type Department Care Team (Late st Contact Info) Description 01/20/2025 10:30 AM EDT Office Visit [facility] MED[facility]INE [address] [place], [place] [phone] Rhiannon De Los Santos DO [address] [place] [address] Routine history and physical examination of adult (Primary Dx); Mild intermittent asthma without complication; Heart palpitations; Hypoglycemia; Pain of right heel; BMI 50.0-59.9, adult (CMS/[facility]) Social History Tobacco Use Types Packs/Day Years Used Date Smoking Tobacco: Never Passive Smoke Exposure: Never Smokeless Tobacco: Never Alcohol Use Standard Drinks/Week Comments Never 0 [...] Orientation Straight 08/18/2022 10 :16 AM EDT documented as of this encounter Last Filed Vital Signs Vital Sign Reading [...] Mass Index 55.27 01/20/2025 10:42 AM EDT documented in this encounter Plan of Treatment Scheduled Orders Name Type Priority Associated Diagnoses Orde r Schedule T4, Free Lab Routine Routine history and physical examination of adult Mild intermittent asthma without complication Heart palpitations Hypoglycemia Pain of right heel BMI 50.0-59.9, adult ([facility]) Expected: 01/20/2025 (Approximate), Expires: 01/20/2026 Lipid Panel, Standard Lab Routine Routine history and physical examination of adult Mild intermittent asthma without complication Heart palpitations Hypoglycemia Pain of right heel BMI 50.0-59.9, adult ([facility]) Expected: 01/20/2025 (Approximate), Expires: 01/20/2026 TSH Lab Routine Routine history and physical examination of adult Mild intermittent asthma without complication Heart palpitations Hypoglycemia Pain of right heel BMI 50.0-59.9, adult ([facility]) Expected: 01/20/2025 (Approximate), Expires: 01/20/2026 Vitamin D, 25-Hydroxy, Total, Immunoassay Lab Routine Routine history and physical examination of adult Mild intermittent asthma without complication Heart palpitations Hypoglycemia Pain of right heel BMI 50.0-59.9, adult ([facility]) Expected: 01/20/2025 (Approximate), Expires: 01/20/2026 Hepatic Function Panel Lab Routine Routine history and physical examination of adult Mild intermittent asthma without complication Heart palpitations Hypoglycemia Pain of right heel BMI 50.0-59.9, adult ([facility]) Expected: 01/20/2025 (Approximate), Expires: 01/20/2026 Hemoglobin A1c Lab Routine Routine history and physical examination of adult Mild intermittent asthma without complication Heart palpitations Hypoglycemia Pain of right heel BMI 50.0-59.9, adult ([facility]) Expected: 01/20/2025 (Approximate), Expires: 01/20/2026 Basic Metabolic Panel Lab Routine Routine history and physical examination of adult Mild intermittent asthma without complication Heart palpitations Hypoglycemia Pain of right heel BMI 50.0-59.9, adult ([facility]) Expected: 01/20/2025 (Approximate), Expires: 01/20/2026 Hepatitis B surface antigen, EIA Lab Routine Routine history and physical examination of adult Mild intermittent asthma without complication Heart palpitations Hypoglycemia Pain of right heel BMI 50.0-59.9, adult ([facility]) Expected: 01/20/2025 (Approximate), Expires: 01/20/2026 Chlamydia/N. Gonorrhoeae RNA, TMA, Urogenitial Microbiology Routine Routine history and physical examination of adult Mild intermittent asthma without complication Heart palpitations Hypoglycemia Pain of right heel BMI 50.0-59.9, adult ([facility]) Ordered: 01/20/2025 HIV-1/2 Antigen and Antibodies, Fourth Generation, with Reflexes Lab Routine Routine history and physical examination of adult Mild intermittent asthma without complication Heart palpitations Hypoglycemia Pain of right heel BMI 50.0-59.9, adult ([facility]) Expected: 01/20/2025 (Approximate), Expires: 01/20/2026 Hepatitis C Antibody with Reflex to HCV, RNA, Quantitative, Real-Time PCR Lab Routine Routine history and physical examination of adult Mild intermittent asthma without complication Heart palpitations Hypoglycemia Pain of right heel BMI 50.0-59.9, adult ([facility]) Expected: 01/20/2025, Expires: 01/20/2026 RPR (Monitor) with Reflex to??Titer Lab Routine Routine history and physical examination of adult Mild intermittent asthma without complication Heart palpitations Hypoglycemia Pain of right heel BMI 50.0-59.9, adult ([facility]) Expected: 01/20/2025, Expires: 01/20/2026 Hepatitis B Surface Antibody, Qualitative Lab Routine Routine history and physical examination of adult Mild intermittent asthma without complication Heart palpitations Hypoglycemia Pain of right heel BMI 50.0-59.9, adult ([facility]) Expected: 01/20/2025 (Approximate), Expires: 01/20/2026 Vitamin B12 (Cobalamin) and Folate Panel, Serum Lab Routine Routine history and physical examination of adult Mild intermittent asthma without complication Heart palpitations Hypoglycemia Pain of right heel BMI 50.0-59.9, adult ([facility]) Expected: 01/20/2025, Expires: 01/20/2026 Ferritin Lab Routine Routine history and physical examination of adult Mild intermittent asthma without complication Heart palpitations Hypoglycemia Pain of right heel BMI 50.0-59.9, adult ([facility]) Expected: 01/20/2025, Expires: 01/20/2026 Iron And Total Iron Binding Capacity Lab Routine Routine history and physical examination of adult Mild intermittent asthma without complication Heart palpitations Hypoglycemia Pain of right heel BMI 50.0-59.9, adult ([facility]) Expected: 01/20/2025, Expires: 01/20/2026 documented as of this encounter Procedures Procedure Name Priority Date/Time Associated Diagnosis Comments XR FOOT 3+ VIEWS RIGHT Routine 01/20/2025 12:41 PM EDT Pain of right heel CBC WITH AUTO DIFFERENTIAL Routine 01/20/2025 12:12 PM EDT Routine history and physical examination of adult Mild intermittent asthma without complication Heart palpitations Hypoglycemia Pain of right heel BMI 50.0-59.9, adult (CMS/HCC) documented in this encounter Results * XR Foot 3+ Views Right (01/20/2025 12:41 PM EDT) Anatomical Region Laterality Modality Lower Extremities, Foot Right Radiogra phic Imaging 01/20/2025 12:4 1 PM EDT Narrative 01/20/2025 1:41 PM EDT ? [facility] ?[address] ?[place] [address] ?XRay Report ? Signed ? Patient: Rosendo Dunaway ?MR#: [id number] ?? 83 ? : 1990 ?Acct:[id number] ? Age/Sex: 34 / F ?ADM Date: 01/20/25 ? Loc: HO.[facility] ? Attending Dr: Rhiannon De Los Santos DO ? Ordering Physician: Rhiannon De Los Santos DO ?? Date of Service: 01/20/25 ?? Procedure(s): XR foot RT min 3V ?? Accession Number(s): [id number] ? cc: Rhiannon De Los Santos DO [...] DD/ 1241 ? TD/TT: 01/20/25 1300 ? Restorative Coordinator: ? Procedure Note Darling Ventura - 01/20/[address] [address] XRay Report Signed Patient: Tanesha Dunaway#: [id number] : 1990Acct:[id number] Age/Sex: 34 / FADM Date: 01/20/25 Loc: .[facility] Attending Dr: Rhiannon De Los Santos DO Ordering Physician: Rhiannon De Los Santos DO Date of Service: 01/20/25 Procedure(s): XR foot RT min 3V Accession Number(s): [id number] cc: Rhiannon De Los Santos DO EXAMINATION: [...] 01/20/25 1338 DD/ 1241 TD/TT: 01/20/25 1300 Restorative Coordinator: Rhiannon De Los Santos DO IMG XR PROCEDURES Final Resu lt * (ABNORMAL) CBC auto differential (01/20/2025 12:12 PM EDT) White Blood Count 8.5 4.8 - 10.8 X10*3/uL [facility] Red Blood Count 4.71 4.20 - 5.50 X10*6/uL [facility] Hemoglobin 12.1 12.0 - 16.0 g/dl [facility] Hematocrit 38.9 37.0 - 47.0 % [facility] Mean Corpuscular Volume 82.6 80.0 - 98.0 fL [facility] Mean Corpuscular Hemoglobin 25.7(L) 27.0 - 33.0 pg [facility] Mean Corpuscular HGB Conc 31.1 31.0 - 35.0 g/dl [facility] Red Cell Distribution Width 15.5 11.0 - 16.0 % [facility] Platelet Count 328 160 - 400 X10*3/uL [facility] Mean Platelet Volume 11.7 9.4 - 12.3 fL [facility] Neutrophils Percent Auto 71.2 45 - 73 % [facility] Imm Gran Pct Auto 0.7(H) 0.0 - 0.4 % [facility] Lymphocytes Percent Auto 18.4(L) 20 - 40 % [facility] Monocytes Percent Auto 5.3 2 - 11 % [facility] Eosinophils Percent Auto 3.6 0 - 4 % [facility] Basophils Percent Auto 0.8 0 - 2 % [facility] NRBC Pct Auto 0.0 0.0 - 0.2 /100WBC [facility] Neutrophils Absolute Auto 6.1 2.0 - 8.3 x10*3/uL [facility] Imm Gran Abs Auto 0.06(H) 0.00 - 0.03 X10*3/uL [facility] Lymphocytes Absolute Auto 1.6 1.2 - 4.9 X10*3/uL [facility] Monocytes Absolute Auto 0.5 0.1 - 1.2 X10*3/uL [facility] Eosinophils Absolute Auto 0.3 0.0 - 0.4 X10*3/uL [facility] Basophils Absolute Auto 0.1 0.0 - 0.2 X10*3/uL [facility] NRBC Abs Auto 0.000 0.0 - 0.012 X10*3/uL [facility] Blood Venous blood specimen / Unknown 01/20/2025 12:12 PM EDT 01/20/2025 1:21 PM EDT us Rhiannon De Los Santos DO LAB BLOOD ORDERABLES Final R esult [facility] [address] [place] [address] [phone] documented in this encounter Visit Diagnoses Diagnosis Routine history and physical examination of adult- Primary Mild intermittent asthma without complication Heart palpitations Palpitations Hypoglycemia Hypoglycemia, unspecified Pain of right heel BMI 50.0-59.9, adult (CMS/[facility]) documented in this encounter Additional Health Concerns Assessment Noted Time PHQ-9 Depression Total Score: 0 01/21/20 10:54 AM EDT documented as of this encounter Care Teams Muck Operator Relationship Specialty Start Date End Date Rhiannon De Los Santos DO [address] [place] [address] PCP - General Family Medicine 05/04/12 Laya Dyer Overlock Hemmer 12/23/24 documented as of this encounter
--- OUTSIDE RECORDS SUMMARY | 2025-01-20 14:05 | XMS_ITS | Encounter Summary ---
Author Organization [employer] Address [address] [facility] [address] [place] [address] Care Team Providers Care Guide Setter Name Role Phone Rhiannon De Los Santos Primary Care Provider + [phone] Encounter Details Date Type Department Care Team ([facility] st Contact Info) Description 12/03/2024 Orders Only [facility] MEDICINE [address] [place] [address] ProviderJoseph MD Social History Tobacco Use Types Packs/Day Years Used Date Smoking Tobacco: Never Passive Smoke Exposure: Never Smokeless Tobacco: Never Alcohol Use Standard Drinks/Week Comments Never 0 (1 standard drink = 0.6 oz pur e alcohol) Depression Answer Date Recorded Patient Health Questionnaire-9 Score 0 07/08/2023 Housing Stability Answer Date Recorded What is your housing situation today? I have yong cordova 08/05/[address] you li ve. Do you have problems with any of the following? None of the above 08/05/2023 Food Insecurity Answer Date Recorded Within the past 12 months, y ou worried that your food would run out before you got money to buy more: Never True 08/05/2023 Within the past 12 months,th e food you bought just didn't last and you didn't have enough money to get more: Never True Transportation Answer Date Recorded In the past 12 months, has l ack of transportation kept you from medical appts, meetings, work or from getting things needed for daily living? No 08/05/2023 Utilities Answer Date Recorded In the past 12 months, has t he electric, gas, oil or water company threatened to shut off services in your home? No 08/05/2023 Depression Answer Date Recorded Patient Health Questionnaire-2 Score 0 07/08/2023 Comments Unknown Sex and Gender Information Value Date Recorded Sex Assigned at Female 08/18/2022 10:16 AM EDT Legal Sex Female 10:16 AM EDT Gender Identity Female 08/18/2022 10:16 AM EDT Sexual Orientation Straight 08/18/2022 10 :16 AM EDT documented as of this encounter Plan of Treatment Not on file documented as of this encounter Procedures Procedure Name Priority Date/Time Associated Diagnosis Comments HM PAP/HPV Routine 11/12/2022 6:10 PM EST documented in this encounter Results * HM PAP/HPV (11/12/2022 6:10 PM EST) us Historical Provider HEALTH MAINTENANCE Final Result documented in this encounter Visit Diagnoses Not on filedocumented in this encounter Additional Health Concerns Assessment Noted Time PHQ-9 Depression Total Score: 0 07/08/20 23 12:10 PM EDT documented as of this encounter Care Teams Guide Setter Relationship Specialty Start Date End Date Rhiannon De Los Santos DO [address] [place] [id number] PCP - General Family Medicine 05/04/12 Laya Dyer Victorian Literature Professor 12/23/24 documented as of this encounter
--- OUTSIDE RECORDS SUMMARY | 2025-01-20 14:05 | XMS_ITS | Encounter Summary ---
Author Organization [employer] Address [address] [facility] [address] [place] [address] Care Team Providers Care Tunnel Elastic Operator Chainstitch Name Role Phone Rhiannon De Los Santos DO Primary Care Provider [phone] Encounter Details Date Type Department Care Team (Latest Contact Info) Description 01/20/2025 Travel Social History Tobacco Use Types Packs/Day Years [...] on file documented as of this encounter Visit Diagnoses Not on filedocumented in this encounter Additional Health Concerns Assessment Noted Time PHQ-9 Depression Total Score: 0 01/21/20 10:54 AM EDT documented as of this encounter Care Teams Tunnel Elastic Operator Chainstitch Relationship Specialty Start Date End Date Rhiannon De Los Santos DO [address] [place] [id number] PCP - General Family Medicine 05/04/12 Laya Dyer Solar [employer]ic Crew Lead 12/23/24 documented as of this encounter
--- OUTSIDE RECORDS SUMMARY | 2025-01-20 14:05 | XMS_ITS | Encounter Summary ---
Author Organization [employer] Address [address] [facility] 7t [place] [address] Care Team Providers Care Design Consultant Name Role Phone Rhiannon De Los Santos DO Primary Care Provider + [phone] Reason for Visit * Reason Comments Med Refill Encounter Details Date Type Department Care Team (Late st Contact Info) Description 07/30/2023 Refill [facility] [address] [place], [place] [phone] Rhiannon De Los Santos DO [address] [place] [address] Social History Tobacco Use Types Packs/Day Years Used Date Smoking Tobacco: Never Passive Smoke Exposure: Never Smokeless Tobacco: Never Alcohol Use Standard Drinks/Week Comments Never 0 (1 standard drink = 0.6 oz pur e alcohol) Depression Answer Date Recorded Patient Health Questionnaire-9 Score 0 07/08/2023 Housing Stability Answer Date Recorded What is your housing situation today? I have yong cordova 07/30/[address] you li ve. Do you have problems with any of the following? None of the above 07/30/2023 Food Insecurity Answer Date Recorded Within the past 12 months, y ou worried that your food would run out before you got money to buy more: Never True 07/30/2023 Within the past 12 months,th e food you bought just didn't last and you didn't have enough money to get more: Never True 09/2023 Transportation Answer Date Recorded In the past 12 months, has l ack of transportation kept you from medical appts, meetings, work or from getting things needed for daily living? No 07/30/2023 Utilities Answer Date Recorded In the past 12 months, has t he electric, gas, oil or water company threatened to shut off services in your home? No 07/30/2023 Depression Answer Date Recorded Patient Health Questionnaire-2 [...] documented as of this encounter Care Teams Design Consultant Relationship Specialty Start Date End Date Rhiannon De Los Santos DO [address] [place] [address] PCP - General Family Medicine 05/04/12 Laya Dyer Car Dumper Operator Helper 12/23/24 documented as of this encounter
--- OUTSIDE RECORDS SUMMARY | 2025-01-20 14:05 | XMS_ITS | Encounter Summary ---
Author Organization [employer] Address [address] [facility] 7t [place] [address] Care Team Providers Care Bookkeeping Clerk Name Role Phone Rhiannon De Los Santos DO Primary Care Provider [phone] Reason for Visit * Reason Comments Care Coordination C3LAILA/JANES Aranda-Follow up call Encounter Details Date Type Department Care Team (Latest Contact Info) Description 01/17/2025 Patient Outreach [facility] MEDICINE [address] [place] [address] Rhiannon De Los Santos DO [address] [place] [address] Care Coordination (JANES Cr-Follow up call) Social History Tobacco Use Types Packs/Day Years [...] Recorded Patient Health Questionnaire-2 Score 0 07/08/2023 Internet Access Answer Date Recorded Internet Access Q1 Yes 12/14/2024 Internet Access Q2 Not on file 12/14/2024 Comments No Sex and Gender Information Value Date Recorded Sex Assigned at Female 08/18/2022 10:16 AM EDT Legal Sex Female 10:16 AM EDT Gender Identity Female 08/18/2022 10:16 AM EDT Sexual Orientation Straight 08/18/2022 10 :16 AM EDT documented as of this encounter Progress Notes * Charli Wilkins - 01/17/2025 4:31 PM EDT CHW Charli Wilkins, placed outbound call to patient's parent. Patient's name, and address confirmed. CHW followed up on SDOH needs. No SDOH needs at this time. No further questions or concerns. CHW reinforced direct contact information for any additional questions or concerns and extended clinic hours on Mondays and Wednesdays, and Walk-In Urgent Care Located in [facility]. Patient provided with after-hours line for [facility], , which offer night time triage service and option to transfer to foreign collection clerk provider if needed. Patient verbalizes understanding, and able to repeat back to service writer advisor. A follow up call will be placed within 10 days, patient agrees with plan. documented in this encounter Plan of Treatment Not on file documented as of this encounter Visit Diagnoses Not on filedocumented in this encounter Additional Health Concerns Assessment Noted Time PHQ-9 Depression Total Score: 0 07/08/20 23 12:10 PM EDT documented as of this encounter Care Teams Bookkeeping Clerk Relationship Specialty Start Date End Date Rhiannon De Los Santos DO [address] [place] [id number] PCP - General Family Medicine 05/04/12 Laya Dyer Rn Immunology 12/23/24 documented as of this encounter
[2025-01-20 14:12] LABS: Alanine Aminotransferase 20 U/L (0-31); Albumin Level 3.9 g/dL (3.5-5.0); Alkaline Phosphatase 79 U/L (39-117); Anion Gap 10 (12-20); Aspartate Amino Transferase 22 U/L (5-31); Bilirubin Direct < 0.2 mg/dL (0.0-0.5); Bilirubin Total 0.2 mg/dL (0.0-1.0); Blood Urea Nitrogen 19 mg/dL (9-16); Calcium 9.4 mg/dL (8.4-10.2); Carbon Dioxide 26 mmol/L (22-29); Chloride 110 mmol/L (96-108); Cholesterol 195 mg/dL (<200); Estimated Glomerular Filt Rate > 60; Glucose Random 94 mg/dL (60-115); HDL Cholesterol 65 mg/dL (>40); Iron 38 mcg/dL (30-160); LDL Cholesterol Calculated 109 mg/dL (<100); Percent Iron Saturation 13 % (15-50); Potassium 4.6 mmol/L (3.3-5.1); Sodium 141 mmol/L (135-145); Total Iron Binding Capacity 284 mcg/dL (228-428); Triglycerides 107 mg/dL (<150); Unsaturated Iron Binding 246 ug/dL
[2025-01-20 14:17] LABS: Ferritin 24 ng/mL (10-122); Free T4 (Free Thyroxine) 0.84 ng/dL (0.71-1.85); Thyroid Stimulating Hormone 1.43 uIU/mL (0.32-4.0); Vitamin D 25-OH Total 31.9 ng/mL (>30)
[2025-01-20 14:20] LABS: Estimated Average Glucose 105 mg/dL; Hemoglobin A1C 111.4614 umol/L; Hemoglobin A1c % 5.3 % (<6.0); Total Hemoglobin (HGBA1C) 3261.3026 umol/L; Vitamin B12 597 pg/mL (200-900)
[2025-01-20 14:58] LABS: CT PCR NOT DETECTED (Not Detect.); NG PCR NOT DETECTED (Not Detect.)
[2025-01-21 07:39] LABS: HBS Num1 352.76 mIU/mL (0-7.99); HBsAGNum1 0.27 S/CO (0.00-0.99); HIV AB/AG Nonreactive (Nonreactive); HIV Num 1 0.12 S/CO (0.00-0.99); Hepatitis B Surface Antigen Negative (Negative); ~HepC Num1 0.12 S/CO (0.00-0.79); ~Hepatitis B Surface Antibody REACTIVE (Nonreactive); ~Hepatitis C Antibody Nonreactive (Nonreactive)
[2025-01-23 11:32] LABS: RPR Rapid Plasma Reagin NON-REACTIVE (NON-REACTIVE)
== END 2025-01-20 12:04 | disposition home or self-care (01) ==
LOC: HO.HHCL 12:03
PROVIDERS: Visit Provider Family Medicine
DX: Z00.00 Encounter for general adult medical examination without abnormal findings (principal); J45.20 Mild intermittent asthma, uncomplicated; R00.2 Palpitations; E16.2 Hypoglycemia, unspecified; M79.671 Pain in right foot; Z68.43 Body mass index [BMI] 50.0-59.9, adult
CPT/HCPCS: 73630; 80048; 80061; 80076; 82306; 82607; 82728; 83036; 83540; 84439; 84443; 85025; 86592; 86706; 86803; 87340; 87389; 87491; 87591

== ENCOUNTER → 2025-01-20 12:41 | Outpatient (BNV) | payer MEDICAID, SELFPAY | PROVIDERS: Visit Provider Radiology Diagnostic Radiology | DX: M79.671 Pain in right foot (principal) | CPT/HCPCS: 73630 ==

== ENCOUNTER 2025-05-03 11:52 | Outpatient (REF) | payer MEDICAID, SELFPAY ==
--- OUTSIDE RECORDS SUMMARY | 2025-05-03 12:58 | XMS_ITS | Clinical Summary ---
Author Organization [employer] Address [address] [place] [address] [address] [place] [address] Care Team Providers Care Cable Tender Name Role Phone Rhiannon De Los Santos Primary Care Provider + [phone] Allergies Active Allergy Reactions Criticality Noted Date Comments Cefuroxime 01/20/2025 Other Reaction(s): facial, lip, and throat swelling Cephalosporins Angioedema 03/28/2015 Medications meloxicam (Mobic) 15 MG tablet Take 15 mg by mouth if needed each day. 3 Active Blood Pressure kit 1 each 1 (one) time per week. 1 kit 3 Active triamcinolone (Kenalog) 0.1 % creamIndications :Eczema, unspecified type APPLY TO AFFECTED AREA TWICE A DAY 30 g 3 4 Active Diclofenac Sodium 1 % gel Apply 2 g topically if needed in the morning, at noon, in the evening, and at bedtime (pain). 100 g 2 5 Active albuterol (Ventolin HFA) 108 (90 Base) MCG/ACT inhaler TAKE 2 PUFFS BY MOUTH EVERY 4 TO 6 HOURS NEEDED 18 g 1 5 Active multivitamin () 27-0.8 MG tablet Take 1 tablet by mouth Once per day. 90 tablet 3 4 04/13/20 25 Active Problems Problem Noted Date Diagnosed Date BMI 50.0-59.9, adult 07/08/2023 Chronic low back pain 09/28/2015 Mild intermittent asthma 09/28/2015 Urticaria 09/28/2015 Vitamin D deficiency 09/28/2015 Resolved Problems Problem Noted Date Diagnosed Date Resolved Date Elevated BP without diagnosis of hypertension 10/06/2010/07/2023 Acute cystitis without hematuria 10/06/2023 10/07/2023 Heart palpitations 10/06/2023 3 Encounters Date Type Department Care Team Description 05/02/2025 [address] [place] [address] Rhiannon De Los Santos DO Care Management (C3CM follow up call) 04/05/[address] [address] Rhiannon De Los Santos DO Care Management (C3 TC #1-lvm) 04/02/2025 Refill [facility] [address] [place] [phone] Rhiannon De Los Santos DO 03/31/2025 Patient Outreach [address] [address] Rhiannon De Los Santos DO Care Coordination (c3/JANES Stout- Last Follow up call) 03/09/2025 Patient Outreach [address] [address] Rhiannon De Los Santos DO Care Coordination (C3CM/JANES Stout- SDNJ follow up call) 03/09/[address] [address] Rhiannon De Los Santos DO Care Management (C3CM follow up call) 02/23/2025 Patient Outreach [address] [address] Rhiannon De Los Santos DO Care Coordination (C3/JANES Stout#1- Follow up call-LVM) 02/10/2025 Patient Outreach [address] [address] Rhiannon De Los Santos DO 02/10/[address] [address] Rhiannon De Los Santos DO Care Management (C3CM follow up call) 02/08/[address] [address] Rhiannon De Los Santos DO from Last 3 Months Immunizations Immunization Administration Dates Next Due DTaP 01/18/1996, 2,10/19/1991,07/19,01/17/1991 HPV, Quadrivalent 01/30/2009,09/08/2007,07/09/20 07 Hep B, Adolescent or Pediatric 12/29/1997,1995,01/31/1996 Hep B, adult 01/09/2021 Hib (HbOC) 11/19/1993, 2,07/19/1991,01/17 IPV 01/18/1996, 2,07/19/1991,01/17 Influenza Whole 07/01/2019 Influenza injectable quadriv alent IIV4 with preservative 07/01/2019 Influenza injectable quadriv alent preservative free 08/28/2021,07/16/2020,09/04/2016,09/28 Influenza, IIV3, injectable 09/26/2010 MMR 05/19/1996,11/19/1993 Meningococcal MCV4P ACYW-135 07/09/2007 Pfizer Covid-19 Vaccine 12+ 08/21/2021 Pfizer Covid-19 Vaccine 12+ michelle-sucrose (Suarez Cap) 08/21/2021 Pneumococcal Polysaccharide PPSV23 03/24/2012 Tdap 09/16/2024,,01/30/2020,02/26,07/09/2007 Varicella 02/06/2021,01/09/2021 Family History Medical History Relation Name Comments [...] 64 01/20/2025 10:42 AM EDT Temperature 36.1 C (96.9 F) 01/20/2025 10:42 AM EDT Respiratory Rate 19 01/20/2025 10:42 AM EDT [...] Years) and At-Risk Patients (6 to 49) Years (2 of 2 - PCV) 03/24/2013 03/24/2012 COVID-19 Vaccine ( - season) 2024 08/21/2021, 08/21/2021 Influenza Vaccine (#1) 2025 , 07/16/2020, 07/01/2019, Additional history exists SDOH Screening 12/14/2025 12/14/2024 Alcohol/Substance Use Screening 01/20/2026 01/20/2025 Depression Screening 01/20/2026 01/20/2025, 01/21/20 Disability Screening 01/20/2026 01/20/2025 Tobacco Screening 01/20/2026 01/20/2025 Cervical Cancer Screening 11/12/2027 HPV/Cotest 11/12/2027 Pap Smear 11/12/2027 11/12/2022 Lipid Panel 01/20/2030 01/20/2025, 070 12/2023, 07/08/2023, Additional history exists DTaP/Tdap/Td Vaccines (11 - [...] Completed 01/09/2021, 12/29/1997, 06/03/1996, Additional history exists HIV Screening Completed 01/20/2025, 07/0 12/2023, 07/08/2023, Additional history exists Hepatitis C Screening Completed 01/20/2025 , 07/08/2023, 12/27/2021, Additional history exists Hepatitis A Vaccines Aged Out No long er eligible based on patient's age to complete this topic Meningococcal B Vaccine Aged Out No l onger eligible based on patient's age to complete this topic RSV under 20 months Aged Out No longe r eligible based on patient's age to complete this topic Rotavirus Vaccines Aged Out No longer eligible based on patient's age to complete this topic Procedures Procedure Name Priority Date/Time Associated Diagnosis Comments LIPID PANEL, STANDARD Routine 01/20/2025 12:12 PM EDT Routine history and physical examination of adult Mild intermittent asthma without complication Heart palpitations Pain of right heel BMI 50.0-59.9, adult (CMS/HCC) HEPATITIS C AB W/REFL TO HCV RNA, QN, PCR Routine 01/20/2025 12:00 AM EDT Routine history and physical examination of adult Mild intermittent asthma without complication Heart palpitations Pain of right heel BMI 50.0-59.9, adult (CMS/HCC) HIV 1/2 ANTIGEN/ANTIBODY, FOURTH GENERATION W/RFL Routine 01/20/2025 12:00 AM EDT Routine history and physical examination of adult Mild intermittent asthma without complication Heart palpitations Pain of right heel BMI 50.0-59.9, adult (CMS/HCC) HM PAP/HPV Routine 11/12/2022 6:10 PM EST from Last 3 Months or Most Recently Relevant to Health Maintenance Results * (ABNORMAL) Lipid Panel, Standard (01/20/2025 12:12 PM EDT) Triglycerides 107 <150 mg/dL [facility] Comment:Desirable Triglyceri de: less than 150 mg/dLBorderline High Triglyceride 150-199 mg/dLHigh Triglyceride: 200-499 mg/dLVery High Triglyceride: greater than or equal to 5OO mg/dL Cholesterol 195 <200 mg/dL [facility] Comment:Desirable Cholestero l: less than 200 mg/dLBorderline High Cholesterol: 200-239 mg/dLHigh Cholesterol: greater than 239 mg/dL LDL Cholesterol Calculated 109(H) <100 mg/dL [facility] Comment:Desirable LDL: less than 100 mg/dLNear Optimal/Above Optimal LDL: 110- 129 mg/dLBorderline High LDL: 130-159 mg/dLHigh LDL: 160-189 mg/dLVery High LDL: greater than or equal to 190 mg/dL HDL Cholesterol 65 >40 mg/dL [facility] Comment:Desirable HDL: great er than 40 mg/dL Note: This HDL assay may give artificially low results in patients with liver disease. Blood Venous blood specimen / Unknown 01/20/2025 12:12 PM EDT 01/20/2025 1:21 PM EDT Rhiannon De Los Santos LAB BLOOD ORDERABLES Final R esult Performing Organization Address [facility] Co de Phone Number [facility] [address] [place] [phone] * Hepatitis C Antibody with Reflex to HCV, RNA, Quantitative, Real-Time PCR (01/20/2025 12:00 AM EDT) Hepatitis C Antibody Nonreactive Nonreactive [facility] Comment:Antibodies to HCV no t detected; does not exclude early acuteHCV infection. Blood Venous blood specimen / Unknown 01/20/2025 01/20/2025 Rhiannon De Los Santos DO LAB BLOOD ORDERABLES Final R [facility] Performing Organization Address [facility] Co de Phone Number [facility] [address] [place] [phone] * HIV-1/2 Antigen and Antibodies, Fourth Generation, with Reflexes (01/20/2025 12:00 AM EDT) HIV AB/AG Nonreactive Nonreactive [facility] Comment:HIV-1 p24 Ag and/or HIV-1/HIV-2 Ab not detected.A test result that is nonreactive does not exclude thepossibility of exposure to or infection with HIV-1 and/orHIV-2. Nonreactive results in this assay for individualswith prior exposure to HIV-1 and/or HIV-2 may be due toantigen and antibody levels that are below the limit ofdetection of this assay.The [employer] HIV Ag/Ab Combo assay result andsupplemental assay results should be interpreted inconjunction with the patient's clinical presentation,history and other laboratory results. If the results areinconsistent with clinical evidence, additional testing issuggested to confirm the result. Blood Venous blood specimen / Unknown 01/20/2025 01/20/2025 Rhiannon De Los Santos DO LAB BLOOD ORDERABLES Final R esult [facility] [address] [place] [phone] * HM PAP/HPV (11/12/2022 6:10 PM EST) Historical Provider HEALTH MAINTENANCE Final Result from Last 3 Months or Most Recently Relevant to Health Maintenance Insurance C3 Care Teams Cable Tender Relationship Specialty Start Date End Date Rhiannon De Los Santos DO [address] [place] [address] PCP - General Family Medicine 05/04/12 Laya Dyer Animal Laboratory Helper 12/23/24
--- OUTSIDE RECORDS SUMMARY | 2025-05-03 12:58 | XMS_ITS | Clinical Summary ---
Author Organization [address] [place] [address] [place] [phone] Phone Care Team Providers Care Spray Machine Loader Name Role Phone Rhiannon De Los Santos DO Primary Care Provider [phone] Surgical History Surgery Date Site/Laterality Comments CHOLECYSTECTOMY PROCEDURE: MS CHOLECYSTECTOMY CARPAL TUNNEL RELEASE Right PROCEDURE: MS NEUROPLASTY &/TRANSPOS MEDIAN NRV CARPAL TUNNE OTHER SURGICAL HISTORY PROCEDURE: MS UNLISTED PROCEDURE SPINE STOMACH SURGERY PROCEDURE: MS UNLISTED PROCEDURE STOMACH; COMMENT: bypass, loose weight Medical History Medical History Date Comments Asthma DX:Asthma Diabetes (CMS/HCC V24, CMS/HCC V28) DX:Diabetes ([facility]) Family History Medical History Relation Name Comments Other cancer Aunt Diabetes Father Hypertension Mother Liver cancer Uncle Relation Name Status Comments Aunt Brother 1 Alive Brother 2 Alive Brother 3 Alive Brother 4 Alive Father Mother Alive Sister 1 Alive Sister 2 Alive Sister 3 Alive Uncle Social History Tobacco Use Types Packs/Day Years Used Date Smoking Tobacco: Never Smokeless Tobacco: Never Alcohol Use Standard Drinks/Week Comments No 0 (1 standard drink = 0.6 oz pur e alcohol) Comments Unknown Sex and Gender Information Value Date Recorded Sex Assigned at Not on file Legal Sex Female 7:34 PM EST Gender Identity Not on file Sexual Orientation Not on file Obstetrics History Last Filed Vital Signs Vital Sign Reading Time Taken Comments Blood Pressure 150/91 12/17/2023 10:27 AM EST Pulse 71 12/17/2023 10:27 AM EST Temperature - - Respiratory Rate - - Oxygen Saturation - - Inhaled Oxygen Concentration - - Weight 146 kg (321 lb) 01/29/2024 9:49 AM EDT Height 163.8 cm (5' 4.5 ) 12/17/2023 10:27 AM ES T Body Mass Index 54.25 12/17/2023 10:27 AM EST Plan of Treatment Upcoming Encounters Date Type Department Care Team (Late st Contact Info) Description 06/07/2025 2:30 PM EDT Office Visit Orthopedic Surgery - [place] [phone] [phone] Michael Montemayor, DPM [address] [address] Health Maintenance Due Date Last Done Comments DTaP,Tdap,and Td Vaccines (1 - Tdap) 2009 Hepatitis B Vaccines (1 of 3 - 19+ 3-dose series) 2009 Cervical Cancer Screening: P ap Smear 08/09/2022 08/09/2019 Depression Screening 05/17/2024 HIV Screening 05/17/2024 Hepatitis C Screening 05/17/2024 Social Influencers of Health Screening 05/17/2024 COVID-19 Vaccine ( - 2023-2 5 season) 2024 Influenza Vaccine (#1) 2025 Cholesterol Screening (Lipid Panel) 12/16/2028 12/17/2023 HIB Vaccines Aged Out No longer eligi ble based on patient's age to complete this topic HPV Vaccines Aged Out No longer eligi ble based on patient's age to complete this topic Hepatitis A Vaccines Aged Out No long er eligible based on patient's age to complete this topic IPV Vaccines Aged Out No longer eligi ble based on patient's age to complete this topic MMR Vaccines Aged Out No longer eligi ble based on patient's age to complete this topic Meningococcal ACWY Vaccine Aged Out N o longer eligible based on patient's age to complete this topic Meningococcal B Vaccine Aged Out No l onger eligible based on patient's age to complete this topic Pneumococcal Vaccine: Pediat rics (0 to 5 Years) and At-Risk Patients (6 to 49 Years) Aged Out No longer eligi ble based on patient's age to complete this topic RSV Immunization Patients Un félix 20 months Aged Out No longer eligible b ased on patient's age to complete this topic Varicella Vaccines Aged Out No longer eligible based on patient's age to complete this topic Procedures Procedure Name Priority Date/Time Associated Diagnosis Comments PAP SMEAR Routine 08/09/2019 from Last 3 Months or Most Recently Relevant to Health Maintenance Results * Pap smear (08/09/2019) 08/09/2019 Narrative HISTORICAL TESTING LAB RESULTING AGENCY - 08/15/2019 3:45 PM EDT [id number] THINPREP PAP, IMAGED: NEGATIVE FOR SQUAMOUS INTRAEPITHELIAL LESION AND MALIGNANCY . ABUNDANT PARTIALLY OBSCURING ACUTE INFLAMMATORY CELLS ARE PRESENT. POOJA LITTLEJONH(ASCP) (CASE ELECTRONICALLY SIGNED 08 15 2019) RESULT OF APTIMA HIGH RISK HPV ASSAY: HIGH RISK HPV: NEGATIVE (SEROTYPES 16,18,31,33,35,39,45,51,52,56,58,59,66,68) COMPLETED ON 2019-08-12 ADEQUACY: SATISFACTORY ENDOCERVICAL/TRANSFORMATION ZONE COMPONENT ABSENT. SOURCE: THINPREP PAP HPV ANY DX: REFLEX 16 AND 18, CERVICAL, IMAGED CLINICAL INFORMATION: HPV ANY DIAGNOSIS. Z12.4, Z01.419, PAP HX NEGATIVE, LMP 06/2019 Akila Dickerson [facility] CYTOLOGY ORDERABLES Final R esult HISTORICAL TESTING LAB RESULTING AGENCY from Last 3 Months or Most Recently Relevant to Health Maintenance Insurance MEDICAID - [place] Care Teams Spray Machine Loader Relationship Specialty Start Date End Date Rhiannon De Los Santos DO [address] [place] [address] PCP - General 10/13/23
[2025-05-06 08:27] LABS: TS Negative Control Passed; TS Panel A 1; TS Panel B 0; TS Positive Control Passed; TSpotTB Negative (Negative)
== END 2025-05-03 11:53 | disposition home or self-care (01) ==
LOC: HO.HHCL 11:52
PROVIDERS: PCP Family Medicine; Visit Provider Family Medicine
DX: Z11.1 Encounter for screening for respiratory tuberculosis (principal)
CPT/HCPCS: 36415; 86481